=== PATIENT | female | born 1990 | race Caucasian/White ===

== ENCOUNTER 2022-08-01 20:31 | Outpatient (REF) | payer OTHER, SELFPAY ==
[2022-08-08 03:07] LABS: Age Gdln ACOG Testing Note (.); HPV Aptima Positive (Negative); HPV Genotype 16 Negative (Negative); HPV Genotype 18,45 Negative (Negative); IGP, Aptima HPV, rfx 16/18,45 Note (.)
== END 2022-08-01 20:32 ==
LOC: LAB 20:31
PROVIDERS: Visit Provider Obstetrics & Gynecology
DX: Z12.4 Encounter for screening for malignant neoplasm of cervix (principal)
CPT/HCPCS: 87624; 87625; 88175; G0145

== ENCOUNTER 2022-08-30 13:19 | Outpatient (OUT) | payer OTHER, SELFPAY ==
[2022-09-04 16:10] LABS: Gest. Age on Collection Date 15.1 weeks (.); Gestat. Age Based On As provided (.); Insulin Dep Diabetes No (.); Maternal Age At EDD 34.9 yr (.); OSBR Risk 1 IN 51 (.); Results Report (.)
== END 2022-08-30 13:20 | disposition home or self-care (01) ==
LOC: LAB 13:21
PROVIDERS: Visit Provider Obstetrics & Gynecology
DX: Z34.90 Encounter for supervision of normal pregnancy, unspecified, unspecified trimester (principal)
CPT/HCPCS: 36415; 82105; 82677; 84702; 86336

== ENCOUNTER 2022-09-06 09:11 | Outpatient (OUT) | payer OTHER, SELFPAY ==
--- NOTE | 2022-09-06 | US_ITS ---
[address] [address] Patient Name: SARAH HAN MRN: [id number] date: 1990 Sex: F Assigned Patient Location: US Current Patient Location: Accession/Order Number: [id number] Exam Date: 09/06/2022 09:15 Report Date: 09/06/2022 16:55 At the request of: ANNMARIE IGNACIO Procedure: US OB transvaginal EXAMINATION: US OB anatomy HISTORY: ANATOMY COMPARISON: No relevant comparison available. TECHNIQUE: Transabdominal sonographic examination was performed for obstetrical and evaluation. FINDINGS: Number: 1 Heart Rate: 139.0 bpm H.B. /min Amniotic Fluid Volume: Subjectively normal position: Breech presentation, maternal right Placental Location: Posterior, grade 1. Placental edge is 4.5 cm from the internal os Cervix Length: 4.4 cm , closed Normally visualized anatomy: Cerebellum, choroid plexus, cisterna magna, lateral cerebral ventricles, orbits, midline falx, hard palate, four-chamber heart, RVOT, LVOT, stomach, kidneys, bladder, umbilical cord insertion into the abdomen, three-vessel cord, cervical spine, thoracic spine, lumbar spine, sacral spine, right upper extremity, left upper extremity, right lower extremity, left lower extremity Suboptimally visualized anatomy: None BIOMETRY: BPD: 4.5 cm 19 weeks 3 days 13% HC: 16.5 cm 19 weeks 2 days, 6% AC: 14.5 cm 19 weeks 6 days, 29% FL: 3.1 cm 19 weeks 4 days, 18% EFW:304.5 grams; 11 ounces, 50% FL/AC: 21.2 FL/BPD: 69.1 HC/AC: 1.1 GESTATIONAL AGE: Age by EDC: 20 weeks 2 days JANINE by EDC: 01/22/2023 Age by current US: 19 weeks 4 days JANINE by current US: 01/27/2023 US/US OB transvaginal IMPRESSION: Normal anatomy scan *Reference: [facility] Practice Guideline for the performance of Obstetric Ultrasound Examinations, November 18, 2006. Electronically authenticated by: GILSON THORPE Date: 09/06/2022 16:55
--- NOTE | 2022-09-06 | US_ITS ---
[address] [address] Patient Name: SARAH HAN MRN: [id number] date: 1990 Sex: F Assigned Patient Location: US Current Patient Location: Accession/Order Number: [id number] Exam Date: 09/06/2022 09:15 Report Date: 09/06/2022 16:55 At the request of: ANNMARIE IGNACIO Procedure: US OB anatomy EXAMINATION: US OB anatomy HISTORY: ANATOMY COMPARISON: No relevant comparison available. TECHNIQUE: Transabdominal sonographic examination was performed for obstetrical and evaluation. FINDINGS: Number: 1 Heart Rate: 139.0 bpm H.B. /min Amniotic Fluid Volume: Subjectively normal position: Breech presentation, maternal right Placental Location: Posterior, grade 1. Placental edge is 4.5 cm from the internal os Cervix Length: 4.4 cm , closed Normally visualized anatomy: Cerebellum, choroid plexus, cisterna magna, lateral cerebral ventricles, orbits, midline falx, hard palate, four-chamber heart, RVOT, LVOT, stomach, kidneys, bladder, umbilical cord insertion into the abdomen, three-vessel cord, cervical spine, thoracic spine, lumbar spine, sacral spine, right upper extremity, left upper extremity, right lower extremity, left lower extremity Suboptimally visualized anatomy: None BIOMETRY: BPD: 4.5 cm 19 weeks 3 days 13% HC: 16.5 cm 19 weeks 2 days, 6% AC: 14.5 cm 19 weeks 6 days, 29% FL: 3.1 cm 19 weeks 4 days, 18% EFW:304.5 grams; 11 ounces, 50% FL/AC: 21.2 FL/BPD: 69.1 HC/AC: 1.1 GESTATIONAL AGE: Age by EDC: 20 weeks 2 days JANINE by EDC: 01/22/2023 Age by current US: 19 weeks 4 days JANINE by current US: 01/27/2023 US/US OB anatomy IMPRESSION: Normal anatomy scan *Reference: [facility] Practice Guideline for the performance of Obstetric Ultrasound Examinations, November 18, 2006. Electronically authenticated by: GILSON THORPE Date: 09/06/2022 16:55
== END 2022-09-06 09:12 | disposition home or self-care (01) ==
LOC: US 09:11
PROVIDERS: Visit Provider Obstetrics & Gynecology
DX: Z34.92 Encounter for supervision of normal pregnancy, unspecified, second trimester (principal)
CPT/HCPCS: 76805; 76817

== ENCOUNTER 2022-10-11 08:42 | Outpatient (OUT) | payer OTHER, SELFPAY ==
[2022-10-11 10:06] LABS: Basophils Absolute Auto 0.1 10^3/uL (0.0-0.1); Basophils Percent Auto 0.6 % (0.2-2.0); Eosinophils Percent Auto 0.5 % (0.9-7.0); Hematocrit 33.6 % (36.0-48.0); Hemoglobin 10.7 g/dL (12.0-16.0); Immature Granulocytes Abs Auto 0.11 10^3/uL (0.00-0.03); Immature Granulocytes Pct Auto 1.4 % (0.0-0.5); Lymphocytes Absolute Auto 1.3 10^3/uL (1.2-3.8); Lymphocytes Percent Auto 15.5 % (20.5-60.0); Mean Corpuscular HGB Conc 31.8 g/dL (29.9-35.2); Mean Corpuscular Volume 91.1 fL (81.0-99.0); Mean Platelet Volume 9.3 fL (9.5-13.5); Monocytes Absolute Auto 0.5 10^3/uL (0.3-0.8); Monocytes Percent Auto 6.7 % (1.7-12.0); Neutrophils Absolute Auto 6.1 10^3/uL (1.4-6.5); Neutrophils Percent Auto 75.3 % (43.0-75.0); Platelet Count 184 10^3/uL (150-450); Red Blood Count 3.69 10^6/uL (4.20-5.40); Red Cell Distribution Width 15.1 % (11.0-15.0); White Blood Count 8.1 10^3/uL (4.0-11.0)
[2022-10-11 11:56] LABS: Glucose 1 Hour 105 mg/dL
== END 2022-10-11 08:43 | disposition home or self-care (01) ==
PROVIDERS: Visit Provider Physician Assistant
DX: Z13.1 Encounter for screening for diabetes mellitus (principal)
CPT/HCPCS: 36415; 82950; 85025

== ENCOUNTER 2022-12-04 10:19 | Outpatient (OUT) | payer OTHER, SELFPAY ==
--- NOTE | 2022-12-04 | ECG_ITS ---
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
== END 2022-12-04 10:20 | disposition home or self-care (01) ==
LOC: CARD 10:20
PROVIDERS: Visit Provider Obstetrics & Gynecology
DX: R00.2 Palpitations (principal); R42 Dizziness and giddiness; R06.02 Shortness of breath
CPT/HCPCS: 93005

== ENCOUNTER 2022-12-27 20:22 | Outpatient (REF) | payer OTHER, SELFPAY | END 2022-12-27 20:23 | disposition home or self-care (01) | LOC: LAB 20:22 | PROVIDERS: Visit Provider Physician Assistant | DX: Z34.93 Encounter for supervision of normal pregnancy, unspecified, third trimester (principal) | CPT/HCPCS: 87081 ==

== ENCOUNTER 2023-01-07 16:40 | Outpatient (OUT) | payer OTHER, SELFPAY ==
[2023-01-07 16:59] VITALS: BP 109/71; PULSE 109
[2023-01-07 17:20] LABS: Bilirubin Urine NEGATIVE (NEGATIVE); Blood Urine NEGATIVE (NEGATIVE); Clarity Urine CLEAR (CLEAR); Color Urine LT. YELLOW (YELLOW); Glucose Urine UA NEGATIVE (NEGATIVE); Ketones Urine NEGATIVE (NEGATIVE); Leukocyte Esterase Urine NEGATIVE (NEGATIVE); Nitrite Urine NEGATIVE (NEGATIVE); Protein Urine NEGATIVE (NEG/TRACE); Specific Gravity Urine 1.015 (1.005-1.025); Urobilinogen Urine 0.2 EU/dL (0.2-1.0)
[2023-01-07 17:22] LABS: Urine Microscopic Indicated NO
[2023-01-07 17:27] LABS: Amnisure NEGATIVE (NEGATIVE)
--- NOTE | 2023-01-07 17:31 | US_ITS ---
The [address] [address] Patient Name: SARAH HAN MRN: [id number] date: 1990 Sex: F Assigned Patient Location: [facility] Current Patient Location: [facility] Accession/Order Number: [id number] Exam Date: 01/07/2023 17:32 Report Date: 01/07/2023 18:45 At the request of: ANNMARIE IGNACIO Procedure: US OB amniotic fluid vol EXAM: US OB amniotic fluid vol HISTORY: Possible ROM COMPARISON: 09/06/2022 TECHNIQUE: Transabdominal sonographic examination was performed for evaluation of the on the . FINDINGS: Limited study for evaluation of the amniotic fluid. Number: 1 Heart Rate: 147 bpm Amniotic Fluid : 17.7 cm, between the fifth and 90th percentile. The largest fluid pocket measures 5.9 cm. position: Cephalic, lies longitudinal US/US OB amniotic fluid vol IMPRESSION: Normal amount of amniotic fluid as described above. Heart Rate: 147 bpm Electronically authenticated by: PEMA MCGUIRE Date: 01/07/2023 18:45
[2023-01-07 17:36] VITALS: TEMP 36.2
--- NOTE | 2023-01-07 19:52 | W.PC.ACHO ---
Registration Status: REG OUT Primary Language: Preferred Language: Report given to Annie Herrera RN.
== END 2023-01-07 20:12 | disposition home or self-care (01) ==
LOC: FBCO 16:43 → FBC 16:46
PROVIDERS: PCP Family Medicine; Visit Provider Obstetrics & Gynecology
DX: Z03.71 Encounter for suspected problem with amniotic cavity and membrane ruled out (principal)
CPT/HCPCS: 59025; 76815; 81003; 84112

== ENCOUNTER 2023-01-16 23:49 | Inpatient (IN) | payer OTHER, SELFPAY ==
[2023-01-17] VITALS (48 sets, daily range): BP systolic 98–143; BP diastolic 56–104; PULSE 76–206; RESP 16; TEMP 36.3–37.1
[2023-01-17 01:12] LABS: Hematocrit 36.8 % (36.0-48.0); Hemoglobin 12.5 g/dL (12.0-16.0); Mean Corpuscular Hemoglobin 29.8 pg (26.7-34.0); Mean Corpuscular Volume 87.8 fL (81.0-99.0); Mean Platelet Volume 10.7 fL (9.5-13.5); Platelet Count 154 10^3/uL (150-450); Red Blood Count 4.19 10^6/uL (4.20-5.40); Red Cell Distribution Width 13.2 % (11.0-15.0); White Blood Count 11.6 10^3/uL (4.0-11.0)
[2023-01-17] MEDS: 0.9 % SODIUM CHLORIDE 1,000 ML 125 ML IV (01:15)
[2023-01-17] MEDS: 0.9 % SODIUM CHLORIDE 1,000 ML 1000 ML IV (02:17)
[2023-01-17] MEDS: FENTANYL CITRATE/PF 100 MCG/2 ML VIAL EPIDURAL ×2 (02:22→02:23)
[2023-01-17] MEDS: ROPIVACAINE HCL/PF 400 MG/200 ML PREMIX 6 MG EPIDURAL (02:32)
[2023-01-17] MEDS: OXYTOCIN/0.9 % SODIUM CHLORIDE 20 UNITS/1,000 ML PLAST..BAG 125 UNIT IV (06:05)
--- NOTE | 2023-01-17 06:12 | PM.OBPRCVD ---
Procedure Intrapartal events: None Induction method: none Delivery monitor: external FHT and external uterine Route of delivery: Laceration description: perineal - 1st degree Delivery repair: Vicryl Estimated blood loss (mL): 300 Anesthesia type: Epidural Disposition: floor Infant Delivery date: 01/17/23 Gender: female presentation: vertex Placental delivery description: Spontaneous cord description: 3 Vessels
[2023-01-17 07:26] LABS: Amphetamine Screen Urine NEGATIVE (NEGATIVE); Barbiturates Screen Urine NEGATIVE (NEGATIVE); Benzodiazepines Screen Urine NEGATIVE (NEGATIVE); Buprenorphine Screen Urine NEGATIVE (NEGATIVE); Cannabinoid Screen Urine NEGATIVE (NEGATIVE); Cocaine Screen Urine NEGATIVE (NEGATIVE); Methadone Screen Urine NEGATIVE (NEGATIVE); Methamphetamines Screen Urine NEGATIVE (NEGATIVE); Opiate Screen Urine NEGATIVE (NEGATIVE); Oxycodone Screen Urine NEGATIVE (NEGATIVE); Phencyclidine Screen Urine NEGATIVE (NEGATIVE); Tricyclic Antidepressant Urine NEGATIVE (NEGATIVE)
--- NOTE | 2023-01-17 08:00 | W.PC.ACHO ---
Registration Status: ADM IN Primary Language: Jamaican Preferred Language: Jamaican Report given to Ender Gallagher RN at 6540. Active Medications Generic Name Dose Route Start Last Admin Trade Name Freq PRN Reason Stop Dose Admin Acetaminophen 650 mg 01/17/23 06:13 Acetaminophen 325 Mg Tablet PO Q6H PRN Mild Pain Al Hydroxide/Mg Hydroxide 2,400 mg 01/17/23 06:13 Magnesium Hydroxide 2,400 Mg/10 Ml Oral.Susp PO Q6H PRN Dyspepsia Benzocaine/Menthol 1 applic 01/17/23 06:13 Benzocaine/Menthol 85 Gram [place] Bottle TOPICAL Q2H PRN Pain Carboprost Tromethamine 250 mcg 01/17/23 00:22 Carboprost Tromethamine 250 Mcg/Ml 1 Ml Vial IM 01/18/23 06:00 Q15M PRN Bleeding Celecoxib 20 mg 01/17/23 21:00 Citalopram Hydrobromide 20 Mg Tablet PO Q24H KISHORE Diphtheria/Pertussis/Tetanus Vacc 0.5 ml 01/19/23 09:00 Adacel Diph,Pertuss(Acell),Tet Vac/Pf 0.5 Ml Adult Syringe IM 01/19/23 09:01 .ONCE ONE Docusate Sodium 100 mg 01/18/23 09:00 Docusate Sodium 100 Mg Capsule PO BID KISHORE Sodium Chloride 1,000 mls @ 125 mls/hr 01/17/23 00:30 01/17/23 01:15 Sodium Chloride 0.9% 1,000 Ml IV 125 mls/hr .Q8H KISHORE Administration Oxytocin/Sodium Chloride 20 units in 1,000 mls @ 125 mls/hr 01/17/23 00:30 01/17/23 06:05 Pitocin 20 Unit/1,000 Ml-Ns IV 01/17/23 08:29 125 mls/hr Q8H KISHORE Administration Ibuprofen 800 mg 01/17/23 06:15 Ibuprofen 400 Mg Tablet PO Q8H KISHORE Measles/Mumps/Rubella Vaccine Live 0.5 ml 01/19/23 09:00 Measles,Mumps,Rubella Vacc/Pf 0.5 Ml Vial SQ 01/19/23 09:01 .ONCE ONE Methylergonovine Maleate 0.2 mg 01/17/23 00:22 Methylergonovine Maleate 0.2 Mg/Ml Ampule IM 01/18/23 06:00 ONCE PRN Uterine Contractility/Contract Methylergonovine Maleate 0.2 mg 01/17/23 00:22 Methylergonovine Maleate 0.2 Mg Tablet PO 01/18/23 06:00 Q4H PRN Uterine Contractility/Contract Misoprostol 600 mcg 01/17/23 00:22 Misoprostol 100 Mcg Tablet PO 01/18/23 06:00 ONCE PRN Uterine Bleeding Misoprostol 800 mcg 01/17/23 00:22 Misoprostol 100 Mcg Tablet SL 01/18/23 06:00 ONCE PRN Uterine Bleeding Misoprostol 1,000 mcg 01/17/23 00:22 Misoprostol 100 Mcg Tablet IL 01/18/23 06:00 ONCE PRN Uterine Bleeding Ondansetron HCl 4 mg 01/17/23 00:22 Ondansetron Pf 4 Mg/2 Ml Vial IV Q6H PRN Nausea And Vomiting Ondansetron HCl 4 mg 01/17/23 00:22 Ondansetron 4 Mg Rapdis Tablet SL Q6H PRN Nausea And Vomiting Oxytocin 10 unit 01/17/23 00:22 Oxytocin 10 Unit/Ml Vial IM 01/17/23 14:00 ONCE PRN Bleeding Senna 17.2 mg 01/17/23 20:00 Sennosides 8.6 Mg Tablet PO QHS PRN Constipation Simethicone 80 mg 01/17/23 06:13 Simethicone 80 Mg Tab.Chew PO QID PRN Abdominal Distention Temazepam 15 mg 01/17/23 06:13 Temazepam 15 Mg Capsule PO QHS PRN Sleep Witch Monica/Glycerin 1 pad 01/17/23 06:13 Glycerin/Witch Monica Pads TOPICAL Q2H PRN Pain Diet Category Date Time Status Regular Consistency Diet Diet 01/17/23 06:13 Active Consults Category Date Time Status Consult to Anesthesiology Routine Cons 01/17/23 Ordered IV Insertion/Site Date of IV Line Insertion [ 01/17/23 Short PIV (<1.75 in) 20g right Hand] IV Insertion Time [Short PIV ( 01:11 <1.75 in) 20g right Hand] Neurology Patient orientation (short person,place,time,situation list) Respiratory Oxygen Delivery Method Room Air Oxygen Delivery Method Room Air Catheter Date Urinary Catheter Removed 01/17/23 Date Urinary Catheter Removed 01/17/23 Date Urinary Catheter Removed 01/17/23 Date Urinary Catheter Removed 01/17/23 Date Urinary Catheter Removed 01/17/23 Date Urinary Catheter Removed 01/17/23
[2023-01-17] MEDS: IBUPROFEN 400 MG TABLET 800 MG PO ×2 (08:34→16:36)
[2023-01-17] MEDS: ONDANSETRON 4 MG RAPDIS TABLET SL (08:36)
--- NOTE | 2023-01-17 14:27 | PC.NURSE ---
1250 up to br, voids large amount, pericare reviewed, linens changed and returns to bed, attempts to nurse baby but baby spits up and uninterested
[2023-01-17] MEDS: BENZOCAINE/MENTHOL 85 GRAM SPRAY BOTTLE 1 APPLIC TOPICAL (16:36)
[2023-01-17] MEDS: GLYCERIN/WITCH HAZEL PADS 1 PAD TOPICAL (16:38)
--- NOTE | 2023-01-17 19:13 | PC.NURSE ---
uses breast pump after explanation on same, states feeling better with motrin and ice pack
[2023-01-17] MEDS: ACETAMINOPHEN 325 MG TABLET 650 MG PO (21:14)
[2023-01-18 01:10] VITALS: BP 111/73; PULSE 88; RESP 16
[2023-01-18] MEDS: CITALOPRAM HYDROBROMIDE 20 MG TABLET PO ×2 (01:15→20:15)
[2023-01-18] MEDS: IBUPROFEN 400 MG TABLET 800 MG PO ×3 (01:15→20:15)
[2023-01-18 06:04] LABS: Basophils Absolute Auto 0.1 10^3/uL (0.0-0.1); Basophils Percent Auto 0.7 % (0.2-2.0); Eosinophils Absolute Auto 0.1 10^3/uL (0.0-0.7); Eosinophils Percent Auto 0.5 % (0.9-7.0); Hematocrit 27.5 % (36.0-48.0); Hemoglobin 9.1 g/dL (12.0-16.0); Immature Granulocytes Abs Auto 0.15 10^3/uL (0.00-0.03); Immature Granulocytes Pct Auto 1.4 % (0.0-0.5); Lymphocytes Absolute Auto 2.1 10^3/uL (1.2-3.8); Lymphocytes Percent Auto 19.8 % (20.5-60.0); Mean Corpuscular HGB Conc 33.1 g/dL (29.9-35.2); Mean Corpuscular Volume 90.8 fL (81.0-99.0); Monocytes Absolute Auto 0.8 10^3/uL (0.3-0.8); Monocytes Percent Auto 7.7 % (1.7-12.0); Neutrophils Absolute Auto 7.3 10^3/uL (1.4-6.5); Neutrophils Percent Auto 69.9 % (43.0-75.0); Platelet Count 119 10^3/uL (150-450); Red Blood Count 3.03 10^6/uL (4.20-5.40); Red Cell Distribution Width 13.6 % (11.0-15.0); White Blood Count 10.5 10^3/uL (4.0-11.0)
[2023-01-18 08:59] VITALS: BP 108/75; PULSE 79
[2023-01-18 09:00] VITALS: RESP 14; TEMP 36.6
--- NOTE | 2023-01-18 09:31 | PM.OBPN ---
OB - PN: Subj Subjective Patient comments: no complaints and pain well controlled status: doing well Exam Constitutional Vital Signs, click to edit/add: Last Vital Signs Temp 98 F 01/18/23 09:00 Pulse 79 01/18/23 08:59 Resp 14 01/18/23 09:00 BP 108/75 01/18/23 08:59 O2 Del Method Room Air 01/18/23 09:00 Documenting provider has reviewed patient's vital signs: yes Common normals: no apparent distress Respiratory Common normals: normal respiratory effort and clear to auscultation bilaterally Cardio Common normals: regular rate and regular rhythm GI Common normals: Normal to inspection, nondistended, normoactive bowel sounds present Extremity Common normals: no clubbing, cyanosis or edema and no calf tenderness Results Labs Labs: Short CBC 01/18/23 Range/Units 05:48 WBC 10.5 (4.0-11.0) 10^3/uL Hgb 9.1 L (12.0-16.0) g/dL Hct 27.5 L (36.0-48.0) % Plt Count 119 L (150-450) 10^3/uL OB - PN: A/P Plan - Vaginal Delivery day: 1 Plan: routine care Time Spent with Patient Time: Total time spent is greater than 50% in coordination of care (as documented) at patient's floor/unit and/or counseling patient: Total time spent with greater than 50% in coordination of care (as documented) at patient's floor/unit and/or counseling patient: less than 15 minutes
--- NOTE | 2023-01-18 11:07 | W.PC.ACHO ---
Registration Status: ADM IN Primary Language: American Preferred Language: American Active Medications Generic Name Dose Route Start Last Admin Trade Name Freq PRN Reason Stop Dose Admin Acetaminophen 650 mg 01/17/23 06:13 01/17/23 21:14 Acetaminophen 325 Mg Tablet PO 650 mg Q6H PRN Administration Mild Pain Al Hydroxide/Mg Hydroxide 2,400 mg 01/17/23 06:13 Magnesium Hydroxide 2,400 Mg/10 Ml Oral.Susp PO Q6H PRN Dyspepsia Benzocaine/Menthol 1 applic 01/17/23 06:13 01/17/23 16:36 Benzocaine/Menthol 85 Gram [place] Bottle TOPICAL 1 applic Q2H PRN Administration Pain Celecoxib 20 mg 01/17/23 21:00 01/18/23 01:15 Citalopram Hydrobromide 20 Mg Tablet PO 20 mg Q24H KISHORE Administration Diphtheria/Pertussis/Tetanus Vacc 0.5 ml 01/19/23 09:00 Adacel Diph,Pertuss(Acell),Tet Vac/Pf 0.5 Ml Adult Syringe IM 01/19/23 09:01 .ONCE ONE Docusate Sodium 100 mg 01/18/23 09:00 Docusate Sodium 100 Mg Capsule PO BID KISHORE Sodium Chloride 1,000 mls @ 125 mls/hr 01/17/23 00:30 01/17/23 02:17 Sodium Chloride 0.9% 1,000 Ml IV 0 mls/hr .Q8H KISHORE Infusion Ibuprofen 800 mg 01/17/23 06:15 01/18/23 01:15 Ibuprofen 400 Mg Tablet PO 800 mg Q8H KISOHRE Administration Measles/Mumps/Rubella Vaccine Live 0.5 ml 01/19/23 09:00 Measles,Mumps,Rubella Vacc/Pf 0.5 Ml Vial SQ 01/19/23 09:01 .ONCE ONE Ondansetron HCl 4 mg 01/17/23 00:22 Ondansetron Pf 4 Mg/2 Ml Vial IV Q6H PRN Nausea And Vomiting Ondansetron HCl 4 mg 01/17/23 00:22 01/17/23 08:36 Ondansetron 4 Mg Rapdis Tablet SL 4 mg Q6H PRN Administration Nausea And Vomiting Senna 17.2 mg 01/17/23 20:00 Sennosides 8.6 Mg Tablet PO QHS PRN Constipation Simethicone 80 mg 01/17/23 06:13 Simethicone 80 Mg Tab.Chew PO QID PRN Abdominal Distention Temazepam 15 mg 01/17/23 06:13 Temazepam 15 Mg Capsule PO QHS PRN Sleep Witch Monica/Glycerin 1 pad 01/17/23 06:13 01/17/23 16:38 Glycerin/Witch Monica Pads TOPICAL 1 pad Q2H PRN Administration Pain Respiratory Oxygen Delivery Method Room Air Oxygen Delivery Method Room Air Cardiology Heart Sounds Strong,Regular Bowels Bowel Pattern No Bowel Movement Renal Bladder Pattern Continent Bladder Pattern Continent Bladder Pattern Continent
[2023-01-18] MEDS: DOCUSATE SODIUM 100 MG CAPSULE PO ×2 (11:10→20:15)
[2023-01-18 16:39] VITALS: RESP 16
[2023-01-18 17:33] VITALS: BP 120/64; PULSE 71
--- NOTE | 2023-01-18 19:06 | W.PC.ACHO ---
Registration Status: ADM IN Primary Language: Latvian Preferred Language: Latvian Report given to Juan Alberto Blue RN. Care relinguished. Active Medications Generic Name Dose Route Start Last Admin Trade Name Wilbert PRN Reason Stop Dose Admin Acetaminophen 650 mg 01/17/23 06:13 01/17/23 21:14 Acetaminophen 325 Mg Tablet PO 650 mg Q6H PRN Administration Mild Pain Al Hydroxide/Mg Hydroxide 2,400 mg 01/17/23 06:13 Magnesium Hydroxide 2,400 Mg/10 Ml Oral.Susp PO Q6H PRN Dyspepsia Benzocaine/Menthol 1 applic 01/17/23 06:13 01/17/23 16:36 Benzocaine/Menthol 85 Gram [place] Bottle TOPICAL 1 applic Q2H PRN Administration Pain Celecoxib 20 mg 01/17/23 21:00 01/18/23 01:15 Citalopram Hydrobromide 20 Mg Tablet PO 20 mg Q24H KISHORE Administration Diphtheria/Pertussis/Tetanus Vacc 0.5 ml 01/19/23 09:00 Adacel Diph,Pertuss(Acell),Tet Vac/Pf 0.5 Ml Adult Syringe IM 01/19/23 09:01 .ONCE ONE Docusate Sodium 100 mg 01/18/23 09:00 01/18/23 11:10 Docusate Sodium 100 Mg Capsule PO 100 mg BID KISHORE Administration Sodium Chloride 1,000 mls @ 125 mls/hr 01/17/23 00:30 01/17/23 02:17 Sodium Chloride 0.9% 1,000 Ml IV 0 mls/hr .Q8H KISHORE Infusion Ibuprofen 800 mg 01/17/23 06:15 01/18/23 11:09 Ibuprofen 400 Mg Tablet PO 800 mg Q8H KISHORE Administration Measles/Mumps/Rubella Vaccine Live 0.5 ml 01/19/23 09:00 Measles,Mumps,Rubella Vacc/Pf 0.5 Ml Vial SQ 01/19/23 09:01 .ONCE ONE Ondansetron HCl 4 mg 01/17/23 00:22 Ondansetron Pf 4 Mg/2 Ml Vial IV Q6H PRN Nausea And Vomiting Ondansetron HCl 4 mg 01/17/23 00:22 01/17/23 08:36 Ondansetron 4 Mg Rapdis Tablet SL 4 mg Q6H PRN Administration Nausea And Vomiting Senna 17.2 mg 01/17/23 20:00 Sennosides 8.6 Mg Tablet PO QHS PRN Constipation Simethicone 80 mg 01/17/23 06:13 Simethicone 80 Mg Tab.Chew PO QID PRN Abdominal Distention Temazepam 15 mg 01/17/23 06:13 Temazepam 15 Mg Capsule PO QHS PRN Sleep Witch Monica/Glycerin 1 pad 01/17/23 06:13 01/17/23 16:38 Glycerin/Witch Monica Pads TOPICAL 1 pad Q2H PRN Administration Pain Respiratory Oxygen Delivery Method Room Air Oxygen Delivery Method Room Air Cardiology Heart Sounds Strong,Regular Bowels Bowel Pattern No Bowel Movement Renal Bladder Pattern Continent Bladder Pattern Continent Bladder Pattern Continent
[2023-01-19 00:55] VITALS: BP 121/73; PULSE 75
[2023-01-19 00:56] VITALS: TEMP 36.7
[2023-01-19 01:05] VITALS: RESP 16
[2023-01-19] MEDS: IBUPROFEN 400 MG TABLET 800 MG PO (04:41)
[2023-01-19 06:09] LABS: HCV Ab Non Reactive (Non Reactive)
--- NOTE | 2023-01-19 07:42 | PC.NURSE ---
Report given to Ender Herrera RN
[2023-01-19 09:17] VITALS: BP 113/81; PULSE 80
[2023-01-19] MEDS: DOCUSATE SODIUM 100 MG CAPSULE PO (09:21)
[2023-01-19 09:25] VITALS: PULSE 80; RESP 16; TEMP 36.7
--- NOTE | 2023-01-19 10:27 | PM.OBDS ---
DS: Providers Provider Date of admission: 01/17/23 00:25 Primary care physician: JACK MALONEY Attending physician on admission: Mauricio Alvarado Consults: 01/17/23 Consult to Anesthesiology Routine Consulting Provider: Chau Silva Reason for consultation: Epidural Has provider been notified: No Attending physician on discharge: Rosetta Hagan Anticipated date of discharge: 01/19/23 DS: Diagnosis Discharge Diagnosis (1) Normal vaginal delivery: Assessment and plan: chart reviewed. discharge home Plan home going scripts provided for ibuprofen. to continue her SSRI when home. home going instructions given with stated understanding. post exam in six weeks OB - DS: Summary Hospital Course Hospital Course: uncomplicated Time spent discussing smoking cessation with patient: 3 to 10 minutes Peripartum Data - Vaginal Delivery Laceration description: periurethral - 1st degree Complications complications: none Delivery method: spontaneous vaginal delivery Gender: female Discharge plan: home Status at Discharge Cognitive/behavioral status at discharge: normal Functional status at discharge: independent ambulation Overall status at discharge: patient is back to baseline Time Spent with Patient Time attestation: Total time spent providing and/or coordinating discharge services: Time spent: less than 30 minutes Specific discharge activities: no sex six weeks, limit time in car to doctor appointments for three weeks, walking only exercise for six weeks, may shower and use bath tub, sports bra 10/09 if decides not to breast feed, general covid and RSV precautions Exam Constitutional Vital Signs, click to edit/add: Last Vital Signs Temp 98.0 F 01/19/23 09:25 Pulse 80 01/19/23 09:25 Resp 16 01/19/23 09:25 BP 113/81 01/19/23 09:17 O2 Del Method Room Air 01/19/23 09:25 Documenting provider has reviewed patient's vital signs: yes Common normals: no apparent distress and oriented x3 HENMT Common normals: normocephalic and head/scalp atraumatic Eye Pupil: PERRL and accommodation reflex normal Neck & C-Spine Common normals: full ROM, no lymphadenopathy and supple Chest Common normals: inspection of chest normal Respiratory Common normals: normal respiratory effort Cardio Common normals: regular rate and regular rhythm GI Common normals: Normal to inspection, nondistended, normoactive bowel sounds present Common normals: no CVA tenderness Back & Pelvis Common normals: no CVA tenderness Extremity Common normals: full ROM and no calf tenderness Neuro Common normals: CN's II-XII intact bilaterally, moves all extremities, no focal motor deficits and no sensory deficits noted Psych Common normals: mental status grossly normal, thought process normal, cooperative and affect normal DS: Data Data Completed and Pending Labs on day of discharge: Labs from last 24 hours 01/18/23 09:24 Hepatitis C Antibody Non reactive Hepatitis C Interp Comment Discharge Plan Discharge Disposition: Home, Self-Care Condition: Good Assessment: clinical exam normal. requesting discharge. voicing no complaints. Plan of Treatment: discharge home Discharge Medications: Continued citalopram 20 mg tablet 20 mg PO DAILY Patient Instructions: Vaginal Delivery (DC) Activity Restrictions/Additional Instructions: stated above Forms: Portal Instructions Follow Up Appointments: six weeks post exam Discharge location: home
== END 2023-01-19 13:50 | disposition home or self-care (01) | DRG 560 ==
PROVIDERS: Admitting Provider Obstetrics & Gynecology; PCP Family Medicine; Visit Provider Obstetrics & Gynecology
DX: O99.344 Other mental disorders complicating childbirth (principal); F41.9 Anxiety disorder, unspecified; O70.0 First degree perineal laceration during delivery; Z3A.39 39 weeks gestation of pregnancy; Z37.0 Single live birth; Z86.19 Personal history of other infectious and parasitic diseases
CPT/HCPCS: 36415; 59025; 59050; 59410; 80307; 85025; 85027; 86803; 86850; 86900; 86901; 96374

== ENCOUNTER 2023-01-24 08:20 | Outpatient (OUT) | payer OTHER, SELFPAY ==
--- NOTE | 2023-01-24 11:53 | PC.NURSE ---
Marissa and 7 day old Yvonne arrive for follow up. Baby is pink and dressed appropriately for weather. Mom states, I feel like the wheels have fallen off becomes tearful complains of bleeding nipples, hard latching and that pumping is terrible Encouraged to deep breathe and LC would work through each concern until pt felt concerns are addressed. Assessment for Marissa WNL, and denies concerns or complaints except for . Currently trying to bottle feed pumped milk during visit as baby is rooting. Encouraged to wait for bottle until breast feeding evaluated. Marissa is anxious, worried, and exhausted. Sig other present today and states has tried to help her but she remains sleep deprived and worried. Pt admits to having anxiety prior to baby's arrival. Yvonne assessed and all WNL. Color pink no transcutaneous bili needed. Heavy wet diaper remover and parents report 7 wets daily and 5 yellow seedy stools yesterday. Oral assessment of noted slight upper lip frenulum but with very slight restriction. Good movement of the tongue into lateral and elevated position. to breast as Marissa states I really want to just breastfeed but am so sore LC discusses and demo's better positioning and deep asymmetrical latch. LC assists mom in getting best position and deeper latch, bringing baby to breast instead of breast to baby. Mom states still struggles to handle baby as I am afraid to hurt her Reassured and encouraged to be proactive in protecting nipples and assisting infant to latch better therefore, infant feeding better. Voices understanding and is able to confidently latch baby without assistance. Baby displays good suck and audible swallows for 15/12 for the feeding. Mom voices relief in pain during feed. Reviewed pumping strategies so mom may get 1 longer block of sleep. Dad will assume 1 bottle feed late evening after mom has breast fed and then pumped to obtain milk for next feed. Parents plan to return 01/28/2023 at 2:30 for continued support. Leaves ambulatory with more confidence in skills. Also given Soothies, shells, lanolin and tea bags with instructions for breast and nipple care.
[2023-01-24 12:40] VITALS: BP 131/82; PULSE 66; RESP 16; TEMP 36.6; O2SAT 98
--- OUTSIDE RECORDS SUMMARY | 2023-02-06 02:39 | XMS_ITS | CCD ---
Author Name Unknown Address [address] [place] [address] Organization [facility] Care Team Providers Care Medical Recruiter Name Role Phone Thanh Fregoso MD Primary Care Provider MD Thanh Fregoso Primary Care Provider [phone] DO Aman Colon Emergency Provider [phone] DO Aman Colon Attending Provider DO aJnn Addison Emergency Provider DO Laci Palacios Emergency Provider Dl Vee Unavailable Aman Colon Admitting Unavailable Aman Colon Attending Unavailable Thanh Freogso Primary Care Unavailable Thanh Fregoso Primary Care Unavailable Jann Addison Admitting Unavailable Jann Addison Attending Unavailable Aman Colon Admitting Unavailable Aman Colon Attending Unavailable Thanh Fregoso Primary Care Unavailable Laci Palacios Admitting Unavailable Laci Palacios Attending Unavailable Thanh Fregoso Primary Care Unavailable DAVON LUNA Attending Unavailable DAVON LUNA Attending Unavailable DAVON LUNA Attending Unavailable Medications Current Medications Medication Drug Class(es) Dates Sig (Normalized) Sig (Original) cephalexin 250 mg oral tablet (5 sources) Cephalosporin Antibacterial Start: 06-30-2022 take 250 mg by mouth four times daily Cephalexin Active 250 MG PO Four times daily 28 June 30, 2022 12:00am Start: 05-24-2022 take 500 mg by mouth twice daily Cephalexin Active 500 MG PO Twice daily 10 5 May 24, 2022 12:00am escitalopram 5 mg oral tablet (5 sources) Serotonin Reuptake Inhibitor Start: 05-24-2022 Escitalopram Oxalate Active MG TABLET May 24, 2022 12:00am take 1 tablet by briseyda th every twenty-four hours Lexapro 5 MG 1 tablet Orally Once a day half of 5mg Active fluticasone propionate 0.05 mg/actuat metered dose nasal spray (1 source) Corticosteroid Start: 07-01-2022 take 1 spray(s) nasal route once daily Flonase Allergy Relief 50 MCG/ACT 1 spray in each nostril Nasally Once a day for 30 day(s) June, Active hydrOXYzine hydrochloride 50 mg oral tablet (4 sources) Antihistamine Start: 05-24-2022 Hydroxyzine Hc l Active MG TABLET May 24, 2022 12:00am loratadine 10 mg oral tablet (1 source) Start: 07-01-2022 take 1 tablet by mouth once daily Claritin 10 MG 1 tablet Orally Once a day for 30 day(s) June, Active Melatonin (1 source) MELATONIN PO Scott e by mouth. Per patient - only as needed 0 Active Problems Problem Classification Problem Date Documented Da te Episodic/Chronic Abdominal pain (1 source) Unspecified abdominal pain; Translations: [Unspecified abdominal pain] Onset: 05-24-2022 Episodic Nausea and vomiting (1 source) Nausea; Translations: [Nausea] 06-30-2022 Episodic Nonmalignant breast conditions (3 sources) Lump in right breast; Translations: [Unspecified lump in the right breast, unspecified quadrant] Onset: 03-27-2022 Episodic Other complications of (4 sources) Complication of , childbirth and/or the puerperium; Translations: [Other specified related conditions, unspecified trimester] 05-24-2022 Episodic Other complications of (1 source) Bacteriuria; Translations: [Bacteriuria during ] 06-30-2022 Episodic Other complications of (2 sources) Other specified related conditions, unspecified trimester; Translations: [Other specified related conditions, unspecified trimester] Onset: 05-24-2022 Episodic Other female genital disorders (2 sources) Vaginal bleeding; Translations: [Abnormal uterine and vaginal bleeding, unspecified] 06-13-2022 Chronic Other skin disorders (3 sources) Scar of skin; Translations: [Scar conditions and fibrosis of skin] Onset: 03-27-2022 03-27-2022 Episodic Other upper respiratory infections (2 sources) Acute pharyngitis, unspecified; Translations: [Acute sinusitis, unspecified] Episodic Residual codes; unclassified (3 sources) History of bilateral breast implants; Translations: [Breast implant status] Onset: 03-27-2022 Chronic Urinary tract infections (4 sources) Urinary tract infectious disease; Translations: [Urinary tract infection, site not specified] 05-24-2022 Episodic Results Test Name Value Interpretation Reference Range Facil ity Quick Strepon 07-01-2022 S. pyogenes Org specific cx Ql (Throat) Negative [facility] [employer] Other Quick Strep [facility] [employer] Other Alanine aminotransferase [En zymatic activity/volume] in Serum or PlasmaOrdered By: Laci Palacios on 06-30-2022 ALT [Catalytic activity/Vol] 11 U/L 7-52 [facility] Albumin [Mass/volume] in Ser um or Plasma by Bromocresol green (BCG) dye binding methoOrdered By: Laci Palacios on 06-30-2022 Albumin BCG dye [Mass/Vol] 3.5 g/dL 3.5-5.7 [facility] Alkaline phosphatase [Enzyma tic activity/volume] in Serum or PlasmaOrdered By: Laci Palacios on 06-30-2022 ALP [Catalytic activity/Vol] 33 U/L 34-104 [facility] Aspartate aminotransferase [ Enzymatic activity/volume] in Serum or PlasmaOrdered By: Laci Palacios on 06-30-2022 AST [Catalytic activity/Vol] 14 U/L 13-39 [facility] Automated erythrocytes count in urine sediment (number/area)Ordered By: Laci Palacios on 06-30-2022 RBC Auto (Urine sed) [#/Area] 3-4 [HPF] 0-4 [facility] Automated leukocytes count i n urine sediment (number/area)Ordered By: Laci Palacios on 06-30-2022 WBC Auto (Urine sed) [#/Area] 1-2 [HPF] 0-4 [facility] Basophils Auto (Bld) [#/Vol] Ordered By: Laci Palacios on 06-30-2022 Basophils (Bld) [#/Vol] 0.1 10*3/uL 0.0-0.2 [facility] Basophils/100 WBC Auto (Bld) Ordered By: Laci Palacios on 06-30-2022 Basophils/100 WBC (Bld) 0.8 % . [facility] Bilirubin Test strip Ql (U)O rdered By: Laci Palacios on 06-30-2022 Bilirubin Ql (U) Negative Negative [facility] Bilirubin.total [Mass/volume ] in Serum or PlasmaOrdered By: Laci Palacios on 06-30-2022 Bilirubin [Mass/Vol] 0.3 mg/dL 0.3-1.0 [facility] COVID CepheidOrdered By: Stefanie Palacios on 06-30-2022 SARS-CoV-2 (COVID-19) Ab IA Ql Negative Negat bryan [facility] Comment on above: This is a duplicate Cepheid Xpert Xpress CoV-2/Flu/RSV Plus RNA by RT-PCR result to be used for statistical tracking purpose only. SARS-CoV-2 (COVID-19) RNA NA A+probe Ql (Unsp spec) [facility] COVID-19 / Flu A/B / RSV PCR on 06-30-2022 SARS-CoV-2 (COVID-19) RNA AZEB+probe Ql (Unsp spec) COVID-19 Cepheid Result Negative for SARS-CoV-2 RNA by RT-PCR Flu A Cepheid Result Negative for Flu A RNA by RT-PCR Flu B Cepheid Result Negative for Flu B RNA by RT-PCR RSV Cepheid Result Negative for RSV RNA by RT-PCR COVID19 Blank Space Reference: Negative COVID19 Blank Space Cepheid Disclaimer The Cepheid Xpert Xpress CoV-2/Flu/RSV Plus has Cepheid Disclaimer not been FDA cleared or approved; this test has Cepheid Disclaimer been authorized by FDA under an EUA for use by Cepheid Disclaimer authorized laboratories; this test has been Cepheid Disclaimer authorized only for the simultaneous qualitative Cepheid Disclaimer detection and differentiation of nucleic acids from Cepheid Disclaimer SARS-CoV-2, influenza A, influenza B, and Cepheid Disclaimer respiratory syncytial virus (RSV), and not for any Cepheid Disclaimer other viruses or pathogens; and this test is only Cepheid Disclaimer authorized for the duration of the declaration that Cepheid Disclaimer circumstances exist justifying the authorization of Cepheid Disclaimer emergency use of in vitro diagnostic tests for Cepheid Disclaimer detection and/or diagnosis of COVID-19 under Cepheid Disclaimer Section 564(b)(1) of the Act, 21 U.S.C. 360bbb- Cepheid Disclaimer 3(b)(1), unless the authorization is terminated or Cepheid Disclaimer revoked sooner. PERFORMED BY: [place] [id number] PATHOLOGIST [employer] JESSICA MANE M.D. Normal [facility] Comment on above: Performed By: #### A DDONUAPLUS, U #### [address] Calcium [Mass/volume] in Ser um or PlasmaOrdered By: Laci Palacios on 06-30-2022 Calcium [Mass/Vol] 8.0 mg/dL 8.6-10.3 [facility] Carbon dioxide, total [Moles /volume] in Serum or PlasmaOrdered By: Laci Palacios on 06-30-2022 CO2 [Moles/Vol] 22.1 mmol/L 21.0-31.0 [facility] Cepheid COVID PCR Negativeon 06-30-2022 SARS-CoV-2 (COVID-19) RNA AZEB+probe Ql (Unsp spec) Negative Normal Negative [facility] Comment on above: Result Comment: This is a duplicate Cepheid Xpert Xpress CoV- 2/Flu/RSV Plus RNA by RT-PCR result to be used for statistical tracking purpose only. PERFORMED BY: [place] [address] PATHOLOGIST [employer] JESSICA MANE M.D. Performed By: #### A REYMUNDO, CUU #### [address] Chloride [Moles/volume] in S erick or PlasmaOrdered By: Laci Palacios on 06-30-2022 Chloride [Moles/Vol] 103 mmol/L 98-107 [facility] Color Auto (U)Ordered By: Broderick Palacios on 06-30-2022 Color (U) Yellow Yellow [facility] Complete Blood Count Auto Di ffon 06-30-2022 Basophils (Bld) [#/Vol] 0.1 10*3/uL Normal 0.0-0.2 [facility] Comment on above: Result Comment: PERF ORMED BY: [place] [address] PATHOLOGIST [employer] JESSICA MANE M.D. Performed By: #### A REYMUNDO, CUU #### [address] Basophils/100 WBC (Bld) 0.8 % Normal . [facility] Comment on above: Performed By: #### A REYMUNDO, CUU #### [address] Eosinophils (Bld) [#/Vol] 0.0 10*3/uL Normal 0.0-0.45 [facility] Comment on above: Performed By: #### A REYMUNDO, CUU #### [address] Eosinophils/100 WBC (Bld) 0.1 % Normal . [facility] Comment on above: Performed By: #### A ERYMUNDO, CUU #### [address] Erythrocyte distribution wid th (RBC) [Ratio] 13.4 % Normal 11.9-15.3 [facility] Comment on above: Performed By: #### A KELSEYPLUS, CUU #### [address] Hematocrit (Bld) [Volume fraction] 35.4 % Normal 34.0-46.4 [facility] Comment on above: Performed By: #### A DDONUAPLUS, CUU #### [address] Hemoglobin (Bld) [Mass/Vol] 11.7 g/dL Low 11.8-15. 4 [facility] Comment on above: Performed By: #### A DDONUAPLUS, CUU #### [address] Lymphocytes (Bld) [#/Vol] 0.9 10*3/uL Low 1.00-4.8 [facility] Comment on above: Performed By: #### A DDONUAPLUS, CUU #### [address] Lymphocytes/100 WBC (Bld) 12.6 % Normal . [facility] Comment on above: Performed By: #### A DDONUAPLUS, CUU #### [address] MCH (RBC) [Entitic mass] 28.2 pg Normal 24.7-34.3 [facility] Comment on above: Performed By: #### A DDONUAPLUS, CUU #### [address] MCV (RBC) [Entitic vol] 85.4 fL Normal 80-100 [facility] Comment on above: Performed By: #### A DDONUAPLUS, CUU #### [address] Mean Corpuscular HGB Conc 33.0 g/dL Normal 32.0-35.0 [facility] Comment on above: Performed By: #### A DDONUAPLUS, CUU #### [address] Monocytes (Bld) [#/Vol] 1.0 10*3/uL High 0.0-0.8 [facility] Comment on above: Performed By: #### A DDONUAPLUS, CUU #### [facility] [address] [place] [address] [place] Monocytes/100 WBC (Bld) 22.71 % High 0.00-20.00 [facility] Comment on above: Result Comment: For adults in ED, MDW > 20.0 may be associated with a higher risk of sepsis during the first 12 hrs of hospital admission Performed By: #### A DDONUAPLUS, CUU #### [facility] [address] [place] [address] [place] Monocytes/100 WBC (Bld) 14.3 % Normal . [facility] Comment on above: Performed By: #### A DDONUAPLUS, CUU #### [facility] [address] Neutrophils (Bld) [#/Vol] 4.9 10*3/uL Normal 1.8-7.7 [facility] Comment on above: Performed By: #### A DDONUAPLUS, CUU #### [facility] [address] [place] [address] [place] Neutrophils/100 WBC (Bld) 72.2 % Normal . [facility] Comment on above: Performed By: #### A DDONUAPLUS, CUU #### [facility] [address] [place] [address] [place] NRBC% 0.0 /100{WBC} Normal 0-0.5 [facility] Comment on above: Performed By: #### A DDONUAPLUS, CUU #### [facility] [address] [place] [id number] [place] Platelet mean volume (Bld) [Entitic vol] 7.5 fL Normal 6.3-10.7 [facility] Comment on above: Performed By: #### A DDONUAPLUS, CUU #### [facility] [address] [place] [address] [place] Platelets (Bld) [#/Vol] 177 10*3/uL Normal 150-450 [facility] Comment on above: Performed By: #### A REYMUNDO, CUU #### [facility] [address] [place] [address] RBC (Bld) [#/Vol] 4.14 10*6/uL Normal 3.60-5.00 [facility] Comment on above: Performed By: #### A REYMUNDO CUU #### [address] WBC (Bld) [#/Vol] 6.8 10*3/uL Normal 3.8-11.6 [facility] Comment on above: Performed By: #### A REYMUNDO CUU #### [address] Comprehensive Metabolic Pane edel 06-30-2022 Albumin [Mass/Vol] 3.5 g/dL Normal 3.5-5.7 [facility] Comment on above: Performed By: #### A REYMUNDO, CUU #### [address] Albumin/Globulin [Mass ratio] 1.3 {ratio} Normal [facility] Comment on above: Performed By: #### A REYMUNDO, CUU #### [address] ALP [Catalytic activity/Vol] 33 U/L Low 34-104 [facility] Comment on above: Performed By: #### A REYMUNDO, CUU #### [address] ALT [Catalytic activity/Vol] 11 U/L Normal 7-52 [facility] Comment on above: Performed By: #### A REYMUNDO, CUU #### [address] Anion gap [Moles/Vol] 11.0 mmol/L Normal 6.0-15.0 [facility] Comment on above: Performed By: #### A REYMUNDO, CUU #### [facility] [address] AST [Catalytic activity/Vol] 14 U/L Normal 13-39 [facility] Comment on above: Performed By: #### A REYMUNDO, CUU #### [facility] [address] [place] [address] [place] Bilirubin [Mass/Vol] 0.3 mg/dL Normal 0.3-1.0 [facility] Comment on above: Performed By: #### A REYMUNDO, CUU #### [facility] [address] Calcium [Mass/Vol] 8.0 mg/dL Low 8.6-10.3 [facility] Comment on above: Performed By: #### A REYMUNDO, CUU #### [facility] [address] Chloride [Moles/Vol] 103 mmol/L Normal 98-107 [facility] Comment on above: Performed By: #### A REYMUNDO, CUU #### [facility] [address] [place] [address] [place] CO2 [Moles/Vol] 22.1 mmol/L Normal 21.0-31.0 [facility] Comment on above: Performed By: #### A REYMUNDO, CUU #### [facility] [address] [place] [id number] [place] Creatinine [Mass/Vol] 0.53 mg/dL Low 0.60-1.20 [facility] Comment on above: Performed By: #### A REYMUNDO, CUU #### [facility] [address] [place] [address] [place] Creatinine Clr Calc Pharmacy 134.58 [facility] Comment on above: Performed By: #### A REYMUNDO, CUU #### [facility] [address] [place] [address] [place] GFR/1.73 sq M.predicted MDRD (S/P/Bld) [Vol rate/Area] mL/min/{1.73_m2} [facility] Comment on above: Performed By: #### A DDONUAPLUS, CUU #### [facility] [address] Globulin (S) [Mass/Vol] 2.8 g/dL Normal [facility] Comment on above: Performed By: #### A DDONUAPLUS, CUU #### [facility] [address] Glucose [Mass/Vol] 80 mg/dL Normal 70-100 [facility] Comment on above: Result Comment: [facility] Glucose Reference Range is dependent on time and content of last meal. Glucose of more than 200 mg/dL in a nonstressed, ambulatory subject supports the diagnosis of Diabetes Mellitus. ADA recommended reference range Performed By: #### A DDONUAPLUS, CUU #### [facility] [address] Potassium [Moles/Vol] 4.1 mmol/L Normal 3.5-5.1 [facility] Comment on above: Performed By: #### A DDONUAPLUS, CUU #### [facility] [address] [place] [address] [place] Protein [Mass/Vol] 6.3 g/dL Low 6.4-8.9 [facility] Comment on above: Performed By: #### A DDONUAPLUS, CUU #### [facility] [address] [place] [address] [place] Sodium [Moles/Vol] 132 mmol/L Low 136-145 [facility] Comment on above: Performed By: #### A DDONUAPLUS, CUU #### [facility] [address] [place] [address] [place] Urea nitrogen [Mass/Vol] 5 mg/dL Low 7-25 [facility] Comment on above: Performed By: #### A DDONUAPLUS, CUU #### [facility] [address] [place] [address] [place] Creatinine [Mass/volume] in Serum or PlasmaOrdered By: Laci Palacios on 06-30-2022 Creatinine [Mass/Vol] 0.53 mg/dL 0.60-1.20 [facility] Dipstick and Microscopicon 0 06-30-2022 Appearance (U) Clear Normal Clear [facility] Comment on above: Order Comment: Name Collection Type:: Clean-Voided Midstream Performed By: #### A DDONUAPLUS, CUU #### [facility] [address] [place] [address] [place] Bacteria,Urine 2+ High None Seen [facility] Comment on above: Order Comment: Name Collection Type:: Clean-Voided Midstream Performed By: #### A DDONUAPLUS, CUU #### [facility] [address] [place] [address] [place] Bilirubin,Urine Negative Normal Negative [facility] Comment on above: Order Comment: Name Collection Type:: Clean-Voided Midstream Performed By: #### A DDONUAPLUS, CUU #### [place] [address] [place] Color (U) Yellow Normal Yellow [facility] Comment on above: Order Comment: Name Collection Type:: Clean-Voided Midstream Performed By: #### A DDONUAPLUS, CUU #### [facility] [address] [place] [address] [place] Glucose Ql (U) Normal Normal Normal [facility] Comment on above: Order Comment: Name Collection Type:: Clean-Voided Midstream Performed By: #### A DDONUAPLUS, CUU #### [facility] [address] [place] [address] [place] Hyaline Casts,Urine 0-8 Normal 0-8 [facility] Comment on above: Order Comment: Name Collection Type:: Clean-Voided Midstream Result Comment: PERF ORMED BY: [place] [address] PATHOLOGIST [employer] JESSICA MANE M.D. Performed By: #### A DDONUAPLUS, CUU #### [facility] [address] [place] [address] [place] Ketones Ql (U) 1+ High Negative [facility] Comment on above: Order Comment: Name Collection Type:: Clean-Voided Midstream Performed By: #### A DDONUAPLUS, CUU #### [address] Leukocyte esterase Test stri p Ql (U) 1+ High Negative [facility] Comment on above: Order Comment: Name Collection Type:: Clean-Voided Midstream Performed By: #### A DDONUAPLUS, CUU #### [address] Nitrite,Urine Negative Normal Negative [facility] Comment on above: Order Comment: Name Collection Type:: Clean-Voided Midstream Performed By: #### A DDONUAPLUS, CUU #### [address] Occult Blood,Urine Trace High Negative [facility] Comment on above: Order Comment: Name Collection Type:: Clean-Voided Midstream Result Comment: PERF ORMED BY: [place] [address] PATHOLOGIST [employer] JESSICA MANE M.D. Performed By: #### A DDONUAPLUS, CUU #### [address] pH (U) 7.5 [pH] Normal 5.0-9.0 [facility] Comment on above: Order Comment: Name Collection Type:: Clean-Voided Midstream Performed By: #### A DDONUAPLUS, CUU #### [address] Protein,Urine Negative Normal Negative [facility] Comment on above: Order Comment: Name Collection Type:: Clean-Voided Midstream Performed By: #### A DDONUAPLUS, CUU #### [address] RBC,Urine 3-4 Normal 0-4 [facility] Comment on above: Order Comment: Name Collection Type:: Clean-Voided Midstream Performed By: #### A DDONUAPLUS, CUU #### [facility] [address] Specificy [place],Urine 1.005 Normal 1.001-1.030 [facility] Comment on above: Order Comment: Name Collection Type:: Clean-Voided Midstream Performed By: #### A DDONUAPLUS, CUU #### [facility] [address] Squamous Epithelial Cell,Urine 5-9 High 0-2 [facility] Comment on above: Order Comment: Name Collection Type:: Clean-Voided Midstream Performed By: #### A DDONUAPLUS, CUU #### [facility] [address] [place] [address] Urobilinogen,Urine Normal Normal Normal [facility] Comment on above: Order Comment: Name Collection Type:: Clean-Voided Midstream Performed By: #### A DDONUAPLUS, CUU #### [facility] [address] [place] [address] WBC,Urine 1-2 Normal 0-4 [facility] Comment on above: Order Comment: Name Collection Type:: Clean-Voided Midstream Performed By: #### A DDONUAPLUS, CUU #### [facility] [address] [place] [address] Eosinophils Auto (Bld) [#/Vo l]Ordered By: Laci Palacios on 06-30-2022 Eosinophils (Bld) [#/Vol] 0.0 10*3/uL 0.0-0.45 [facility] Eosinophils/100 WBC Auto (Bl d)Ordered By: Laci Palacios on 06-30-2022 Eosinophils/100 WBC (Bld) 0.1 % . [facility] Erythrocyte distribution wid th Auto (RBC) [Ratio]Ordered By: Laci Palacios on 06-30-2022 Erythrocyte distribution wid th (RBC) [Ratio] 13.4 % 11.9-15.3 [facility] Globulin Calc (S) [Mass/Vol] Ordered By: Laci Palacios on 06-30-2022 Globulin (S) [Mass/Vol] 2.8 g/dL [facility] Glucose [Mass/volume] in Ser um or PlasmaOrdered By: Laci Palacios on 06-30-2022 Glucose [Mass/Vol] 80 mg/dL 70-100 [facility] Comment on above: ADA recommended refe rence rangeRandom Glucose Reference Range is dependent on time and content of last meal. Glucose of more than 200 mg/dL in a nonstressed, ambulatory subject supports the diagnosis of Diabetes Mellitus. Hematocrit Auto (Bld) [Volum e fraction]Ordered By: Laci Palacios on 06-30-2022 Hematocrit (Bld) [Volume fraction] 35.4 % 3 4.0-46.4 [facility] Hemoglobin [Mass/volume] in BloodOrdered By: Laci Palacios on 06-30-2022 Hemoglobin (Bld) [Mass/Vol] 11.7 g/dL 11.8-15. 4 [facility] Ketones Auto test strip (U) [Mass/Vol]Ordered By: Laci Palacios on 06-30-2022 Ketones (U) [Mass/Vol] 1+ Negative [facility] - UrinalysisOrder ed By: Laci Palacios on 06-30-2022 Hyaline casts LM Ql (Urine sed) 0-8 [LPF] 0-8 [facility] Leukocytes [#/volume] correc francois for nucleated erythrocytes in Blood by Automated counOrdered By: Laci Palacios on 06-30-2022 WBC corrected for nucl RBC A uto (Bld) [#/Vol] 6.8 10*3/uL 3.8-11.6 [facility] Lipaseon 06-30-2022 Lipase [Catalytic activity/Vol] 21.0 U/L Normal 11.0 -82.0 [facility] Comment on above: Result Comment: PERF ORMED BY: [place] [address] PATHOLOGIST [employer] JESSICA MANE M.D. Performed By: #### A PAOLO DWYER #### [address] Lipase [Enzymatic activity/v olume] in Serum or PlasmaOrdered By: Laci Palacios on 06-30-2022 Lipase [Catalytic activity/Vol] 21.0 U/L 11.0 -82.0 [facility] Lymphocytes Auto (Bld) [#/Vo l]Ordered By: Laci Palacios on 06-30-2022 Lymphocytes (Bld) [#/Vol] 0.9 10*3/uL 1.00-4.8 [facility] Lymphocytes/100 WBC Auto (Bl d)Ordered By: Laci Palacios on 06-30-2022 Lymphocytes/100 WBC (Bld) 12.6 % . [facility] MCH Auto (RBC) [Entitic mass ]Ordered By: Laci Palacios on 06-30-2022 MCH (RBC) [Entitic mass] 28.2 pg 24.7-34.3 [facility] MCHC Auto (RBC) [Mass/Vol]Or dered By: Laci Palacios on 06-30-2022 MCHC (RBC) [Mass/Vol] 33.0 g/dL 32.0-35.0 [facility] MCV Auto (RBC) [Entitic vol] Ordered By: Laci Palacios on 06-30-2022 MCV (RBC) [Entitic vol] 85.4 fL 80-100 [facility] Monocyte distribution width [Entitic volume] in Blood by AutomatedOrdered By: Laci Palacios on 06-30-2022 Monocyte distribution width Auto (Bld) [Entitic vol] 22.71 % 0.00-20.00 [facility] Comment on above: For adults in ED, MD W > 20.0 may be associated with a higher risk of sepsis during the first 12 hrs of hospital admission Monocytes Auto (Bld) [#/Vol] Ordered By: Laci Palacios on 06-30-2022 Monocytes (Bld) [#/Vol] 1.0 10*3/uL 0.0-0.8 [facility] Monocytes/100 WBC Auto (Bld) Ordered By: Laci Palacios on 06-30-2022 Monocytes/100 WBC (Bld) 14.3 % . [facility] Neutrophils Auto (Bld) [#/Vo l]Ordered By: Laci Palacios on 06-30-2022 Neutrophils (Bld) [#/Vol] 4.9 10*3/uL 1.8-7.7 [facility] Neutrophils/100 WBC Auto (Bl d)Ordered By: Laci Palacios on 06-30-2022 Neutrophils/100 WBC (Bld) 72.2 % . [facility] Nitrite Test strip Ql (U)Ord ered By: Laci Palacios on 06-30-2022 Nitrite Ql (U) Negative Negative [facility] No Panel InformationOrdered By: Laci Palacios on 06-30-2022 Estimated GFR (CKD-EPI) > 60.0 mL/Min [facility] Creatinine Clearanc e (Chem 134.58 [facility] Nucleated erythrocytes [Pres ence] in Blood by Automated countOrdered By: Laci Palacios on 06-30-2022 Nucleated RBC Auto Ql (Bld) 0.0 /100{WBC} 0-0.5 [facility] Platelet mean volume Auto (B ld) [Entitic vol]Ordered By: Laci Palacios on 06-30-2022 Platelet mean volume (Bld) [Entitic vol] 7.5 fL 6.3-10.7 [facility] Platelets Auto (Bld) [#/Vol] Ordered By: Laci Palacios on 06-30-2022 Platelets (Bld) [#/Vol] 177 10*3/uL 150-450 [facility] Potassium [Moles/volume] in Serum or PlasmaOrdered By: Laci Palacios on 06-30-2022 Potassium [Moles/Vol] 4.1 mmol/L 3.5-5.1 [facility] Protein Auto test strip (U) [Mass/Vol]Ordered By: Laci Palacios on 06-30-2022 Protein (U) [Mass/Vol] Negative Negative [facility] Protein [Mass/volume] in Ser um or PlasmaOrdered By: Laci Palacios on 06-30-2022 Protein [Mass/Vol] 6.3 g/dL 6.4-8.9 [facility] RBC Auto (Bld) [#/Vol]Ordere d By: Laci Palacios on 06-30-2022 RBC (Bld) [#/Vol] 4.14 10*6/uL 3.60-5.00 [facility] Serum or plasma albumin/glob ulin mass ratioOrdered By: Laci Palacios on 06-30-2022 Albumin/Globulin [Mass ratio] 1.3 {ratio} [facility] Serum or plasma anion gap de terminationOrdered By: Laci Palacios on 06-30-2022 Anion gap [Moles/Vol] 11.0 mmol/L 6.0-15.0 [facility] Sodium [Moles/volume] in Ser um or PlasmaOrdered By: Laci Palacios on 06-30-2022 Sodium [Moles/Vol] 132 mmol/L 136-145 [facility] Specific gravity Auto test s trip (U) [Rel density]Ordered By: Laci Palacios on 06-30-2022 Specific gravity (U) [Rel density] 1.005 1.001-1.030 [facility] Squamous epithelial cells de tection in urine sediment by light microscopyOrdered By: Laci Palacios on 06-30-2022 Epithelial cells.squamous LM Ql (Urine sed) 5-9 [HPF] 0-2 [facility] Urea nitrogen [Mass/volume] in Serum or PlasmaOrdered By: Laci Palacios on 06-30-2022 Urea nitrogen [Mass/Vol] 5 mg/dL 7-25 [facility] Urine bacteria detection by automated methodOrdered By: Laci Palacios on 06-30-2022 Bacteria Auto Ql (U) 2+ None Seen [facility] Urine clarity by refractomet ry automatedOrdered By: Laci Palacios on 06-30-2022 Clarity Refractometry automated (U) Clear Clear [facility] Urine glucose measurement by automated test strip (mass/volume)Ordered By: Laci Palacios on 06-30-2022 Glucose Auto test strip (U) [Mass/Vol] Normal mg/dL Normal [facility] Urine hemoglobin detection b y automated test stripOrdered By: Laci Palacios on 06-30-2022 Hemoglobin Auto test strip Ql (U) Trace Ne gative [facility] Urine leukocyte esterase det ection by automated test stripOrdered By: Laci Palacios on 06-30-2022 Leukocyte esterase Auto test strip Ql (U) 1+ Negative [facility] Urobilinogen Auto test strip (U) [Mass/Vol]Ordered By: Laci Palacios on 06-30-2022 Urobilinogen (U) [Mass/Vol] Normal mg/dL Normal [facility] WBC Auto (Bld) [#/Vol]Ordere d By: Laci Palacios on 06-30-2022 WBC (Bld) [#/Vol] 6.8 10*3/uL 3.8-11.6 [facility] pH Auto test strip (U)Ordere d By: Laci Palacios on 06-30-2022 pH (U) 7.5 [pH] 5.0-9.0 [facility] Chlamydia/GC Amplificationon 06-14-2022 Chlamydia Trachomotis, AZEB Negative Normal Negative [facility] Comment on above: Order Comment: Name Collection Type:: Clean-Voided Midstream Performed By: #### A REYMUNDO, CUU #### [facility] [address] [place] [address] Neisseria Gonorrhoeae, AZEB Negative Normal Negative [facility] Comment on above: Order Comment: Name Collection Type:: Clean-Voided Midstream Result Comment: Perf ormed at: =G - [facility] [address] [id number] Physician In Private Practice: Melva Rendon MD, Phone: [phone] PERFORMED BY: [place] [address] PATHOLOGIST [employer] JESSICA MANE M.D. Performed By: #### A REYMUNDO, CUU #### [facility] [address] [place] [address] Fungal Smearon 06-14-2022 Fungal Smear Fungus Smear Results No Yeast Like Elements Seen No Fungal Like Elements Seen Trichomonas Screen No Trichomonas Seen Trich Reference Reference range = None Seen PERFORMED BY: [place] [address] PATHOLOGIST [employer] JESSICA MANE M.D. [facility] Comment on above: Performed By: #### A DDONUAPLUS, CUU #### [facility] [address] [id number] [facility] Genital Cultureon 06-14-2022 Genital Culture Genital Results Light Normal Urogenital Heidy 2 Days No More GC Specimen not tested for Neisseria gonorrheae PERFORMED BY: [facility] [address] [place] [address] PATHOLOGIST [employer] JESSICA MANE M.D. [facility] Comment on above: Performed By: #### A DDONUAPLUS, CUU #### [facility] [address] [id number] [facility] Alanine aminotransferase [En zymatic activity/volume] in Serum or PlasmaOrdered By: PROVIDER TEMP on 06-13-2022 ALT [Catalytic activity/Vol] 10 U/L 7-52 [facility] Albumin [Mass/volume] in Ser um or Plasma by Bromocresol green (BCG) dye binding methoOrdered By: PROVIDER TEMP on 06-13-2022 Albumin BCG dye [Mass/Vol] 4.0 g/dL 3.5-5.7 [facility] Alkaline phosphatase [Enzyma tic activity/volume] in Serum or PlasmaOrdered By: PROVIDER TEMP on 06-13-2022 ALP [Catalytic activity/Vol] 33 U/L 34-104 [facility] Aspartate aminotransferase [ Enzymatic activity/volume] in Serum or PlasmaOrdered By: PROVIDER TEMP on 06-13-2022 AST [Catalytic activity/Vol] 14 U/L 13-39 [facility] Automated erythrocytes count in urine sediment (number/area)Ordered By: Jann Addison on 06-13-2022 RBC Auto (Urine sed) [#/Area] 0-1 [HPF] 0-4 [facility] Automated leukocytes count i n urine sediment (number/area)Ordered By: Jann Addison on 06-13-2022 WBC Auto (Urine sed) [#/Area] 3-4 [HPF] 0-4 [facility] Basic Metabolic Panelon 05-20 Anion gap [Moles/Vol] 11.0 mmol/L Normal 6.0-15.0 [facility] Comment on above: Performed By: #### A DDEDUAPLUS, CUU #### [facility] [address] [place] [address] [place] Calcium [Mass/Vol] 8.5 mg/dL Low 8.6-10.3 [facility] Comment on above: Performed By: #### A DDONUAPLUS, CUU #### [facility] [address] [place] [address] [place] Chloride [Moles/Vol] 102 mmol/L Normal 98-107 [facility] Comment on above: Performed By: #### A DDONUAPLUS, CUU #### [facility] [address] CO2 [Moles/Vol] 23.6 mmol/L Normal 21.0-31.0 [facility] Comment on above: Performed By: #### A DDEDUAPLUS, CUU #### [facility] [address] Creatinine [Mass/Vol] 0.58 mg/dL Low 0.60-1.20 [facility] Comment on above: Performed By: #### A DDEDUAPLUS CUU #### [facility] [address] [place] [address] [place] Creatinine Clr Calc Pharmacy 122.98 [facility] Comment on above: Performed By: #### A DDEDUAPLUS, CUU #### [facility] [address] [place] [address] [place] GFR/1.73 sq M.predicted MDRD (S/P/Bld) [Vol rate/Area] mL/min/{1.73_m2} [facility] Comment on above: Performed By: #### A DDEDUAPLUS, CUU #### [facility] [address] [place] [address] [place] Glucose [Mass/Vol] 114 mg/dL High 70-100 [facility] Comment on above: Result Comment: [place] Glucose Reference Range is dependent on time and content of last meal. Glucose of more than 200 mg/dL in a nonstressed, ambulatory subject supports the diagnosis of Diabetes Mellitus. ADA recommended reference range Performed By: #### A DDONUAPLUS, CUU #### [facility] [address] Potassium [Moles/Vol] 3.6 mmol/L Normal 3.5-5.1 [facility] Comment on above: Performed By: #### A DDONUAPLUS, CUU #### [facility] [address] Sodium [Moles/Vol] 133 mmol/L Low 136-145 [facility] Comment on above: Performed By: #### A DDONUAPLUS, CUU #### [facility] [address] Urea nitrogen [Mass/Vol] 9 mg/dL Normal 7-25 [facility] Comment on above: Performed By: #### A DDONUAPLUS, CUU #### [facility] [address] Basophils Auto (Bld) [#/Vol] Ordered By: PROVIDER TEMP on 06-13-2022 Basophils (Bld) [#/Vol] 0.1 10*3/uL 0.0-0.2 [facility] Basophils/100 WBC Auto (Bld) Ordered By: PROVIDER TEMP on 06-13-2022 Basophils/100 WBC (Bld) 0.8 % . [facility] Bilirubin Test strip Ql (U)O rdered By: Jann Addison on 06-13-2022 Bilirubin Ql (U) Negative Negative [facility] Bilirubin.direct [Mass/volum e] in Serum or PlasmaOrdered By: PROVIDER TEMP on 06-13-2022 Bilirubin.direct [Mass/Vol] 0.00 mg/dL 0.03-0.1 8 [facility] Comment on above: If the DBIL is less than 0.1, IBIL is not able to becalculated. Bilirubin.total [Mass/volume ] in Serum or PlasmaOrdered By: PROVIDER TEMP on 06-13-2022 Bilirubin [Mass/Vol] 0.3 mg/dL 0.3-1.0 [facility] Calcium [Mass/volume] in Ser um or PlasmaOrdered By: PROVIDER TEMP on 06-13-2022 Calcium [Mass/Vol] 8.5 mg/dL 8.6-10.3 [facility] Carbon dioxide, total [Moles /volume] in Serum or PlasmaOrdered By: PROVIDER TEMP on 06-13-2022 CO2 [Moles/Vol] 23.6 mmol/L 21.0-31.0 [facility] Chloride [Moles/volume] in S erick or PlasmaOrdered By: PROVIDER TEMP on 06-13-2022 Chloride [Moles/Vol] 102 mmol/L 98-107 [facility] Choriogonadotropin.beta subu nit [Units/volume] in Serum or PlasmaOrdered By: PROVIDER TEMP on 06-13-2022 HCG.beta subunit Qn 609225.00 m[IU]/mL [facility] Comment on above: Approximate Approxim ate hCG Gestational Age Range (mIU/ml) (weeks)0.2-1 5-50 1-2 50-500 2-3 100-5,000 3-4 500-10,000 4-5 1,000-50,000 5-6 10,000-100,000 6-8 15,000-200,000 8-12 10,000-100,000 Color Auto (U)Ordered By: Mohsen Addison on 06-13-2022 Color (U) Yellow Yellow [facility] Complete Blood Count Auto Di ffon 06-13-2022 Basophils (Bld) [#/Vol] 0.1 10*3/uL Normal 0.0-0.2 [facility] Comment on above: Result Comment: PERF ORMED BY: [place] [address] PATHOLOGIST [employer] JESSICA MANE M.D. Performed By: #### C BC #### [facility] [address] [place] [address] [place] Basophils/100 WBC (Bld) 0.8 % Normal . [facility] Comment on above: Performed By: #### C BC #### [facility] [address] [place] [address] [place] Eosinophils (Bld) [#/Vol] 0.0 10*3/uL Normal 0.0-0.45 [facility] Comment on above: Performed By: #### C BC #### [address] Eosinophils/100 WBC (Bld) 0.3 % Normal . [facility] Comment on above: Performed By: #### C BC #### [address] Erythrocyte distribution wid th (RBC) [Ratio] 13.0 % Normal 11.9-15.3 [facility] Comment on above: Performed By: #### C BC #### [address] Hematocrit (Bld) [Volume fraction] 36.5 % Normal 34.0-46.4 [facility] Comment on above: Performed By: #### C BC #### [address] Hemoglobin (Bld) [Mass/Vol] 12.3 g/dL Normal 11.8-15. 4 [facility] Comment on above: Performed By: #### C BC #### [address] Lymphocytes (Bld) [#/Vol] 2.0 10*3/uL Normal 1.00-4.8 [facility] Comment on above: Performed By: #### C BC #### [address] Lymphocytes/100 WBC (Bld) 23.8 % Normal . [facility] Comment on above: Performed By: #### C BC #### [address] MCH (RBC) [Entitic mass] 28.6 pg Normal 24.7-34.3 [facility] Comment on above: Performed By: #### C BC #### [address] MCV (RBC) [Entitic vol] 84.9 fL Normal 80-100 [facility] Comment on above: Performed By: #### C BC #### [facility] [address] Mean Corpuscular HGB Conc 33.7 g/dL Normal 32.0-35.0 [facility] Comment on above: Performed By: #### C BC #### [facility] [address] [place] [address] [place] Monocytes (Bld) [#/Vol] 0.6 10*3/uL Normal 0.0-0.8 [facility] Comment on above: Performed By: #### C BC #### [facility] [address] [place] [address] [place] Monocytes/100 WBC (Bld) 17.95 % Normal 0.00-20.00 [facility] Comment on above: Performed By: #### C BC #### [facility] [address] [place] [address] [place] Monocytes/100 WBC (Bld) 6.7 % Normal . [facility] Comment on above: Performed By: #### C BC #### [facility] [address] [place] [address] [place] Neutrophils (Bld) [#/Vol] 5.7 10*3/uL Normal 1.8-7.7 [facility] Comment on above: Performed By: #### C BC #### [facility] [address] [place] [id number] [place] Neutrophils/100 WBC (Bld) 68.4 % Normal . [facility] Comment on above: Performed By: #### C BC #### [facility] [address] [place] [address] [place] NRBC% 0.0 /100{WBC} Normal 0-0.5 [facility] Comment on above: Performed By: #### C BC #### [facility] [address] [place] [address] [place] Platelet mean volume (Bld) [Entitic vol] 7.6 fL Normal 6.3-10.7 [facility] Comment on above: Performed By: #### C BC #### [facility] [address] [place] [address] [place] Platelets (Bld) [#/Vol] 208 10*3/uL Normal 150-450 [facility] Comment on above: Performed By: #### C BC #### [facility] [address] [place] [address] [place] RBC (Bld) [#/Vol] 4.30 10*6/uL Normal 3.60-5.00 [facility] Comment on above: Performed By: #### C BC #### [facility] [address] [place] [id number] [place] WBC (Bld) [#/Vol] 8.4 10*3/uL Normal 3.8-11.6 [facility] Comment on above: Performed By: #### C BC #### [address] Creatinine [Mass/volume] in Serum or PlasmaOrdered By: PROVIDER TEMP on 06-13-2022 Creatinine [Mass/Vol] 0.58 mg/dL 0.60-1.20 [facility] Dipstick and Microscopicon 0 06-13-2022 Appearance (U) Clear Normal Clear [facility] Comment on above: Order Comment: Name Collection Type:: Clean-Voided Midstream Performed By: #### U HCG, ADDONUAPLUS #### [place] [address] [place] Bacteria,Urine None Seen Normal None Seen [facility] Comment on above: Order Comment: Name Collection Type:: Clean-Voided Midstream Performed By: #### U HCG, ADDONUAPLUS #### [facility] [address] [place] [address] [place] Bilirubin,Urine Negative Normal Negative [facility] Comment on above: Order Comment: Name Collection Type:: Clean-Voided Midstream Performed By: #### U HCG, ADDONUAPLUS #### [facility] [address] [place] [id number] [place] Color (U) Yellow Normal Yellow [facility] Comment on above: Order Comment: Name Collection Type:: Clean-Voided Midstream Performed By: #### U HCG, ADDONUAPLUS #### [facility] [address] [place] [address] Glucose Ql (U) Normal Normal Normal [facility] Comment on above: Order Comment: Name Collection Type:: Clean-Voided Midstream Performed By: #### U HCG, ADDONUAPLUS #### [facility] [address] [place] [address] Hyaline Casts,Urine 0-8 Normal 0-8 [facility] Comment on above: Order Comment: Name Collection Type:: Clean-Voided Midstream Performed By: #### U HCG, ADDONUAPLUS #### [facility] [address] [place] [address] Ketones Ql (U) 1+ High Negative [facility] Comment on above: Order Comment: Name Collection Type:: Clean-Voided Midstream Performed By: #### U HCG, ADDONUAPLUS #### [address] Leukocyte esterase Test stri p Ql (U) 1+ High Negative [facility] Comment on above: Order Comment: Name Collection Type:: Clean-Voided Midstream Performed By: #### U HCG, ADDONUAPLUS #### [address] Nitrite,Urine Negative Normal Negative [facility] Comment on above: Order Comment: Name Collection Type:: Clean-Voided Midstream Performed By: #### U HCG, ADDONUAPLUS #### [facility] [address] [place] [address] Occult Blood,Urine 1+ High Negative [facility] Comment on above: Order Comment: Name Collection Type:: Clean-Voided Midstream Performed By: #### U HCG, ADDONUAPLUS #### [address] pH (U) 5.5 [pH] Normal 5.0-9.0 [facility] Comment on above: Order Comment: Name Collection Type:: Clean-Voided Midstream Performed By: #### U HCG, ADDONUAPLUS #### [address] Protein,Urine Negative Normal Negative [facility] Comment on above: Order Comment: Name Collection Type:: Clean-Voided Midstream Performed By: #### U HCG, ADDONUAPLUS #### [address] RBC LM.HPF (Urine sed) [#/Area] 0 /[HPF] Normal 0-4 [facility] Comment on above: Order Comment: Name Collection Type:: Clean-Voided Midstream Performed By: #### U HCG, ADDONUAPLUS #### [address] Specificy [place],Urine 1.009 Normal 1.001-1.030 [facility] Comment on above: Order Comment: Name Collection Type:: Clean-Voided Midstream Performed By: #### U HCG, ADDONUAPLUS #### [address] Squamous Epithelial Cell,Urine 0-1 Normal 0-2 [facility] Comment on above: Order Comment: Name Collection Type:: Clean-Voided Midstream Performed By: #### U HCG, ADDONUAPLUS #### [address] Urobilinogen,Urine Normal Normal Normal [facility] Comment on above: Order Comment: Name Collection Type:: Clean-Voided Midstream Performed By: #### U HCG, ADDONUAPLUS #### [place] [address] [place] WBC,Urine 3-4 Normal 0-4 [facility] Comment on above: Order Comment: Name Collection Type:: Clean-Voided Midstream Performed By: #### U HCG, ADDONUAPLUS #### [address] Eosinophils Auto (Bld) [#/Vo l]Ordered By: PROVIDER TEMP on 06-13-2022 Eosinophils (Bld) [#/Vol] 0.0 10*3/uL 0.0-0.45 [facility] Eosinophils/100 WBC Auto (Bl d)Ordered By: PROVIDER TEMP on 06-13-2022 Eosinophils/100 WBC (Bld) 0.3 % . [facility] Erythrocyte distribution wid th Auto (RBC) [Ratio]Ordered By: PROVIDER TEMP on 06-13-2022 Erythrocyte distribution wid th (RBC) [Ratio] 13.0 % 11.9-15.3 [facility] Fungal cultureOrdered By: Mohsen Addison on 06-13-2022 Fungus identified Cx Nom (Unsp spec) [facility] Genital specimen bacteria id entification by aerobic cultureOrdered By: Jann Addison on 06-13-2022 Bacteria identified Aer cx N om (Genital specimen) [facility] Globulin Calc (S) [Mass/Vol] Ordered By: PROVIDER TEMP on 06-13-2022 Globulin (S) [Mass/Vol] 3.0 g/dL [facility] Glucose [Mass/volume] in Ser um or PlasmaOrdered By: PROVIDER TEMP on 06-13-2022 Glucose [Mass/Vol] 114 mg/dL 70-100 [facility] Comment on above: ADA recommended refe rence rangeRandom Glucose Reference Range is dependent on time and content of last meal. Glucose of more than 200 mg/dL in a nonstressed, ambulatory subject supports the diagnosis of Diabetes Mellitus. HCG ( test) IA.rapi d Ql (U)Ordered By: PROVIDER TEMP on 06-13-2022 HCG ( test) Ql (U) Positive [facility] HCG,Quantitativeon 3 HCG,Quantitative 992204.00 m[iU]/mL Normal [facility] Comment on above: Result Comment: Appr oximate Approximate hCG Gestational Age Range (mIU/ml) (weeks) 0.2-1 5-50 1-2 50-500 2-3 100-5,000 3-4 500-10,000 4-5 1,000-50,000 5-6 10,000-100,000 6-8 15,000-200,000 8-12 10,000-100,000 PERFORMED BY: [facility] [address] [place] [address] PATHOLOGIST [employer] JESSICA MANE M.D. Performed By: #### A DDONUAPLUS, CUU #### [address] HCG,Urineon 06-13-2022 Beta HCG ( test) Ql (U) Positive High [facility] Comment on above: Order Comment: Name Collection Type:: Clean-Voided Midstream Result Comment: PERF ORMED BY: [place] [address] PATHOLOGIST [employer] JESSICA MANE M.D. Performed By: #### U HCG, ADDONUAPLUS #### [address] Hematocrit Auto (Bld) [Volum e fraction]Ordered By: PROVIDER TEMP on 06-13-2022 Hematocrit (Bld) [Volume fraction] 36.5 % 3 4.0-46.4 [facility] Hemoglobin [Mass/volume] in BloodOrdered By: PROVIDER TEMP on 06-13-2022 Hemoglobin (Bld) [Mass/Vol] 12.3 g/dL 11.8-15. 4 [facility] Hepatic Panelon 06-13-2022 Albumin [Mass/Vol] 4.0 g/dL Normal 3.5-5.7 [facility] Comment on above: Performed By: #### H EPATIC, BMP, LIPASE, HCGQNT #### [facility] [address] [place] [address] Albumin/Globulin [Mass ratio] 1.3 {ratio} Normal [facility] Comment on above: Performed By: #### H EPATIC, BMP, LIPASE, HCGQNT #### [facility] [address] [place] [address] ALP [Catalytic activity/Vol] 33 U/L Low 34-104 [facility] Comment on above: Performed By: #### H EPATIC, BMP, LIPASE, HCGQNT #### [facility] [address] [place] [address] ALT [Catalytic activity/Vol] 10 U/L Normal 7-52 [facility] Comment on above: Performed By: #### H EPATIC, BMP, LIPASE, HCGQNT #### [address] AST [Catalytic activity/Vol] 14 U/L Normal 13-39 [facility] Comment on above: Performed By: #### H EPATIC, BMP, LIPASE, HCGQNT #### [address] Bilirubin [Mass/Vol] 0.3 mg/dL Normal 0.3-1.0 [facility] Comment on above: Performed By: #### H EPATIC, BMP, LIPASE, HCGQNT #### [address] Bilirubin,Indirect 0.3 mg/dL Normal [facility] Comment on above: Performed By: #### H EPATIC, BMP, LIPASE, HCGQNT #### [address] Bilirubin.indirect [Mass/Vol] 0.00 mg/dL Low 0.03-0 .18 [facility] Comment on above: Result Comment: If t he DBIL is less than 0.1, IBIL is not able to be calculated. Performed By: #### H EPATIC, BMP, LIPASE, HCGQNT #### [address] Globulin (S) [Mass/Vol] 3.0 g/dL Normal [facility] Comment on above: Performed By: #### H EPATIC, BMP, LIPASE, HCGQNT #### [address] [address] Protein [Mass/Vol] 7.0 g/dL Normal 6.4-8.9 [facility] Comment on above: Performed By: #### H EPATIC, BMP, LIPASE, HCGQNT #### [address] Ketones Auto test strip (U) [Mass/Vol]Ordered By: Jann Addison on 04-26-2023 Ketones (U) [Mass/Vol] 1+ Negative Fi [facility] Laboratory - Microbiology an d Antimicrobial susceptibilityOrdered By: Jann Addison on 06-13-2022 C. trachomatis DNA AZEB+probe Ql (Unsp spec) Negative Negative [facility] N. gonorrhoeae DNA AZEB+probe Ql (Unsp spec) Negative Negative [facility] Comment on above: Performed at: =[address] [id number] Director: Melva Rendon MD, Phone: [phone] Laboratory - UrinalysisOrder ed By: Jann Addison on 06-13-2022 Hyaline casts LM Ql (Urine sed) 0-8 [LPF] 0-8 [facility] Leukocytes [#/volume] correc francois for nucleated erythrocytes in Blood by Automated counOrdered By: PROVIDER TEMP on 06-13-2022 WBC corrected for nucl RBC A uto (Bld) [#/Vol] 8.4 10*3/uL 3.8-11.6 [facility] Lipaseon 06-13-2022 Lipase [Catalytic activity/Vol] 33.0 U/L Normal 11.0 -82.0 [facility] Comment on above: Performed By: #### A NELL DWYERU #### [address] Lipase [Enzymatic activity/v olume] in Serum or PlasmaOrdered By: PROVIDER TEMP on 06-13-2022 Lipase [Catalytic activity/Vol] 33.0 U/L 11.0 -82.0 [facility] Lymphocytes Auto (Bld) [#/Vo l]Ordered By: PROVIDER TEMP on 06-13-2022 Lymphocytes (Bld) [#/Vol] 2.0 10*3/uL 1.00-4.8 [facility] Lymphocytes/100 WBC Auto (Bl d)Ordered By: PROVIDER TEMP on 06-13-2022 Lymphocytes/100 WBC (Bld) 23.8 % . [facility] MCH Auto (RBC) [Entitic mass ]Ordered By: PROVIDER TEMP on 06-13-2022 MCH (RBC) [Entitic mass] 28.6 pg 24.7-34.3 [facility] MCHC Auto (RBC) [Mass/Vol]Or dered By: PROVIDER TEMP on 06-13-2022 MCHC (RBC) [Mass/Vol] 33.7 g/dL 32.0-35.0 [facility] MCV Auto (RBC) [Entitic vol] Ordered By: PROVIDER TEMP on 06-13-2022 MCV (RBC) [Entitic vol] 84.9 fL 80-100 [facility] Monocyte distribution width [Entitic volume] in Blood by AutomatedOrdered By: PROVIDER TEMP on 06-13-2022 Monocyte distribution width Auto (Bld) [Entitic vol] 17.95 % 0.00-20.00 [facility] Monocytes Auto (Bld) [#/Vol] Ordered By: PROVIDER TEMP on 06-13-2022 Monocytes (Bld) [#/Vol] 0.6 10*3/uL 0.0-0.8 [facility] Monocytes/100 WBC Auto (Bld) Ordered By: PROVIDER TEMP on 06-13-2022 Monocytes/100 WBC (Bld) 6.7 % . [facility] Neutrophils Auto (Bld) [#/Vo l]Ordered By: PROVIDER TEMP on 06-13-2022 Neutrophils (Bld) [#/Vol] 5.7 10*3/uL 1.8-7.7 [facility] Neutrophils/100 WBC Auto (Bl d)Ordered By: PROVIDER TEMP on 06-13-2022 Neutrophils/100 WBC (Bld) 68.4 % . [facility] Nitrite Test strip Ql (U)Ord ered By: Jann Addison on 06-13-2022 Nitrite Ql (U) Negative Negative [facility] No Panel InformationOrdered By: PROVIDER TEMP on 06-13-2022 Estimated GFR (CKD-EPI) > 60.0 mL/Min [facility] Creatinine Clearanc e (Chem 122.98 [facility] Nucleated erythrocytes [Pres ence] in Blood by Automated countOrdered By: PROVIDER TEMP on 06-13-2022 Nucleated RBC Auto Ql (Bld) 0.0 /100{WBC} 0-0.5 [facility] Platelet mean volume Auto (B ld) [Entitic vol]Ordered By: PROVIDER TEMP on 06-13-2022 Platelet mean volume (Bld) [Entitic vol] 7.6 fL 6.3-10.7 [facility] Platelets Auto (Bld) [#/Vol] Ordered By: PROVIDER TEMP on 06-13-2022 Platelets (Bld) [#/Vol] 208 10*3/uL 150-450 [facility] Potassium [Moles/volume] in Serum or PlasmaOrdered By: PROVIDER TEMP on 06-13-2022 Potassium [Moles/Vol] 3.6 mmol/L 3.5-5.1 [facility] Protein Auto test strip (U) [Mass/Vol]Ordered By: Jann Addison on 06-13-2022 Protein (U) [Mass/Vol] Negative Negative [facility] Protein [Mass/volume] in Ser um or PlasmaOrdered By: PROVIDER TEMP on 06-13-2022 Protein [Mass/Vol] 7.0 g/dL 6.4-8.9 [facility] RBC Auto (Bld) [#/Vol]Ordere d By: PROVIDER TEMP on 06-13-2022 RBC (Bld) [#/Vol] 4.30 10*6/uL 3.60-5.00 [facility] Serum or plasma albumin/glob ulin mass ratioOrdered By: PROVIDER TEMP on 06-13-2022 Albumin/Globulin [Mass ratio] 1.3 {ratio} [facility] Serum or plasma anion gap de terminationOrdered By: PROVIDER TEMP on 06-13-2022 Anion gap [Moles/Vol] 11.0 mmol/L 6.0-15.0 [facility] Serum or plasma non-glucuron idated bilirubin measurement (mass/volume)Ordered By: PROVIDER TEMP on 06-13-2022 Bilirubin.indirect [Mass/Vol] 0.3 mg/dL [facility] Sodium [Moles/volume] in Ser um or PlasmaOrdered By: PROVIDER TEMP on 06-13-2022 Sodium [Moles/Vol] 133 mmol/L 136-145 [facility] Specific gravity Auto test s trip (U) [Rel density]Ordered By: Jann Addison on 06-13-2022 Specific gravity (U) [Rel density] 1.009 1.001-1.030 [facility] Squamous epithelial cells de tection in urine sediment by light microscopyOrdered By: Jann Addison on 06-13-2022 Epithelial cells.squamous LM Ql (Urine sed) 0-1 [HPF] 0-2 [facility] Trichomonas vaginalis detect ion by wet preparationOrdered By: Jann Addison on 06-13-2022 T. vaginalis Wet prep Ql (Unsp spec) [facility] US OB <= 14 weeks fetuson US OB <= 14 weeks fetus [place] [address] Ultrasound Report Signed Patient: Marissa Han MR#: [id number] : 1990 Acct:[id number] Age/Sex: 32 / F ADM Date: 06/13/22 Loc: ER Room: Type: [facility] ER Attending Dr: Ordering Provider: Jann Addison DO Date of Service: 06/13/22 US/US OB <= 14 weeks fetus: Abdominal Pain Copies to: Jann Addison DO US OB <= 14 weeks fetus 06/13/2022 8:18 PM SIGNS AND SYMPTOMS: Abdominal cramping and bleeding COMPARISON: None. TECHNIQUE: Limited pelvic ultrasound using transvesical sonography. FINDINGS: An early intrauterine is identified. The visualized yolk sac measures 0.27 cm. The visualized pole has an estimated gestational age of 8 weeks and 4 days by crown-rump length which measures 1.95 cm . A heart rate is identified at 181 bpm. A normal amount of amniotic fluid is present. There is no evidence for placenta previa or subchorionic hemorrhage. Pelvic survey reveals no gross abnormalities. US/US OB <= 14 weeks fetus IMPRESSION: Single live IUP with an estimated gestational age of 8 weeks and 4 days with an estimated date of delivery of 01/19/2023 and normal heart rate. Impression dictated by: Jerry Herman M.D.06/13/2022 9:10 PM Dictation Location: RADIO-PC-13 Tech: Lulu Spencer Transcribed By: ADRIA 06/13/222109 Dictated By: Jerry Herman II, MD 06/13/222108 Signed By: 06/13/222109 Normal [facility] Urea nitrogen [Mass/volume] in Serum or PlasmaOrdered By: PROVIDER LEWIS on 06-13-2022 Urea nitrogen [Mass/Vol] 9 mg/dL 7-25 [facility] Urine bacteria detection by automated methodOrdered By: Jann Addison on 06-13-2022 Bacteria Auto Ql (U) None seen None Seen [facility] Urine clarity by refractomet ry automatedOrdered By: Jann Addison on 06-13-2022 Clarity Refractometry automated (U) Clear Clear [facility] Urine glucose measurement by automated test strip (mass/volume)Ordered By: Jann Addison on 06-13-2022 Glucose Auto test strip (U) [Mass/Vol] Normal mg/dL Normal [facility] Urine hemoglobin detection b y automated test stripOrdered By: Jann Addison on 06-13-2022 Hemoglobin Auto test strip Ql (U) 1+ Ne gative [facility] Urine leukocyte esterase det ection by automated test stripOrdered By: Jann Addison on 06-13-2022 Leukocyte esterase Auto test strip Ql (U) 1+ Negative [facility] Urobilinogen Auto test strip (U) [Mass/Vol]Ordered By: Jann Addison on 06-13-2022 Urobilinogen (U) [Mass/Vol] Normal mg/dL Normal [facility] WBC Auto (Bld) [#/Vol]Ordere d By: GALO SAUCEDO on 06-13-2022 WBC (Bld) [#/Vol] 8.4 10*3/uL 3.8-11.6 [facility] pH Auto test strip (U)Ordere d By: Jann Addison on 06-13-2022 pH (U) 5.5 [pH] 5.0-9.0 [facility] Choriogonadotropin.beta subu nit [Units/volume] in Serum or PlasmaOrdered By: Aman Colon on 05-26-2022 [place] [address].00 m[IU]/mL [facility] Comment on above: Approximate Approxim ate hCG Gestational Age Range (mIU/ml) (weeks)0.2-1 5-50 1-2 50-500 2-3 100-5,000 3-4 500-10,000 4-5 1,000-50,000 5-6 10,000-100,000 6-8 15,000-200,000 8-12 10,000-100,000 HCG,Quantitativeon 3 HCG,Quantitative 48201.00 m[iU]/mL Normal [facility] Comment on above: Result Comment: Appr oximate Approximate hCG Gestational Age Range (mIU/ml) (weeks) 0.2-1 5-50 1-2 50-500 2-3 100-5,000 3-4 500-10,000 4-5 1,000-50,000 5-6 10,000-100,000 6-8 15,000-200,000 8-12 10,000-100,000 PERFORMED BY: [place] [address] PATHOLOGIST [employer] JESSICA MANE M.D. Performed By: #### H CGQNT #### [address] ABO/Rh Retypeon 05-24-2022 ABO/RH Recheck Result Positive Normal [facility] Comment on above: Result Comment: PERF ORMED BY: [place] [address] PATHOLOGIST [employer] JESSICA MANE M.D. Automated erythrocytes count in urine sediment (number/area)Ordered By: PROVIDER TEMP on 05-24-2022 RBC Auto (Urine sed) [#/Area] 1-2 [HPF] 0-4 [facility] Automated leukocytes count i n urine sediment (number/area)Ordered By: PROVIDER TEMP on 05-24-2022 WBC Auto (Urine sed) [#/Area] 20-49 [HPF] 0-4 [facility] Automated urine hyaline cast s count (number/volume)Ordered By: PROVIDER TEMP on 05-24-2022 Hyaline casts Auto (U) [#/Vol] None seen [LPF] 0-1 [facility] Basic Metabolic Panelon 04-0 Anion gap [Moles/Vol] 8.6 mmol/L Normal 6.0-15.0 [facility] Comment on above: Performed By: #### B MP #### [facility] [address] Calcium [Mass/Vol] 9.5 mg/dL Normal 8.6-10.3 [facility] Comment on above: Performed By: #### B MP #### [facility] [address] [place] [address] [place] Chloride [Moles/Vol] 104 mmol/L Normal 98-107 [facility] Comment on above: Performed By: #### B MP #### [facility] [address] CO2 [Moles/Vol] 26.8 mmol/L Normal 21.0-31.0 [facility] Comment on above: Performed By: #### B MP #### [facility] [address] [place] [address] [place] Creatinine [Mass/Vol] 0.65 mg/dL Normal 0.60-1.20 [facility] Comment on above: Performed By: #### B MP #### [facility] [address] [place] [address] [place] Creatinine Clr Calc Pharmacy 109.74 Normal [facility] Comment on above: Result Comment: PERF ORMED BY: [place] [address] PATHOLOGIST [employer] JESSICA MANE M.D. Performed By: #### B MP #### [facility] [address] [place] [address] [place] GFR/1.73 sq M.predicted MDRD (S/P/Bld) [Vol rate/Area] mL/min/{1.73_m2} Normal [facility] Comment on above: Performed By: #### B MP #### [facility] [address] [place] [address] [place] Glucose [Mass/Vol] 90 mg/dL Normal 70-100 [facility] Comment on above: Result Comment: [place] Glucose Reference Range is dependent on time and content of last meal. Glucose of more than 200 mg/dL in a nonstressed, ambulatory subject supports the diagnosis of Diabetes Mellitus. ADA recommended reference range Performed By: #### B MP #### [facility] [address] [place] [id number] [facility] Potassium [Moles/Vol] 4.4 mmol/L Normal 3.5-5.1 [facility] Comment on above: Performed By: #### B MP #### [facility] [address] Sodium [Moles/Vol] 135 mmol/L Low 136-145 [facility] Comment on above: Performed By: #### B MP #### [facility] [address] [place] [id number] [facility] Urea nitrogen [Mass/Vol] 10 mg/dL Normal 7-25 [facility] Comment on above: Performed By: #### B MP #### [facility] [address] Basophils Auto (Bld) [#/Vol] Ordered By: Aman Colon on 05-24-2022 Basophils (Bld) [#/Vol] 0.1 10*3/uL 0.0-0.2 [facility] Basophils/100 WBC Auto (Bld) Ordered By: Aman Colon on 05-24-2022 Basophils/100 WBC (Bld) 0.9 % . [facility] Bilirubin Test strip Ql (U)O rdered By: GALO TEMP on 05-24-2022 Bilirubin Ql (U) Negative Negative [facility] Calcium [Mass/volume] in Ser um or PlasmaOrdered By: Aman Colon on 05-24-2022 Calcium [Mass/Vol] 9.5 mg/dL 8.6-10.3 [facility] Carbon dioxide, total [Moles /volume] in Serum or PlasmaOrdered By: Aman Colon on 05-24-2022 CO2 [Moles/Vol] 26.8 mmol/L 21.0-31.0 [facility] Casts typing in urine sedime nt by light microscopyOrdered By: PROVIDER TEMP on 05-24-2022 Casts LM Nom (Urine sed) None seen [LPF] None S een [facility] Chloride [Moles/volume] in S erick or PlasmaOrdered By: Aman Colon on 05-24-2022 Chloride [Moles/Vol] 104 mmol/L 98-107 [facility] Choriogonadotropin.beta subu nit [Units/volume] in Serum or PlasmaOrdered By: Aman Colon on 05-24-2022 HCG.beta subunit Qn 9975.00 m[IU]/mL [facility] Comment on above: Approximate Approxim ate hCG Gestational Age Range (mIU/ml) (weeks)0.2-1 5-50 1-2 50-500 2-3 100-5,000 3-4 500-10,000 4-5 1,000-50,000 5-6 10,000-100,000 6-8 15,000-200,000 8-12 10,000-100,000 Color Auto (U)Ordered By: AMRITA ANDERSON TEMP on 05-24-2022 Color (U) Yellow Yellow [facility] Complete Blood Count Auto Di ffon 05-24-2022 Basophils (Bld) [#/Vol] 0.1 10*3/uL Normal 0.0-0.2 [facility] Comment on above: Result Comment: PERF ORMED BY: [place] [address] PATHOLOGIST [employer] JESSICA MANE M.D. Performed By: #### C BC #### [facility] [address] [place] [address] [place] Basophils/100 WBC (Bld) 0.9 % Normal . [facility] Comment on above: Performed By: #### C BC #### [facility] [address] Eosinophils (Bld) [#/Vol] 0.1 10*3/uL Normal 0.0-0.45 [facility] Comment on above: Performed By: #### C BC #### [address] Eosinophils/100 WBC (Bld) 1.2 % Normal . [facility] Comment on above: Performed By: #### C BC #### [address] Erythrocyte distribution wid th (RBC) [Ratio] 13.1 % Normal 11.9-15.3 [facility] Comment on above: Performed By: #### C BC #### [address] Hematocrit (Bld) [Volume fraction] 38.1 % Normal 34.0-46.4 [facility] Comment on above: Performed By: #### C BC #### [address] Hemoglobin (Bld) [Mass/Vol] 12.7 g/dL Normal 11.8-15. 4 [facility] Comment on above: Performed By: #### C BC #### [address] Lymphocytes (Bld) [#/Vol] 2.1 10*3/uL Normal 1.00-4.8 [facility] Comment on above: Performed By: #### C BC #### [address] Lymphocytes/100 WBC (Bld) 29.0 % Normal . [facility] Comment on above: Performed By: #### C BC #### [address] MCH (RBC) [Entitic mass] 28.4 pg Normal 24.7-34.3 [facility] Comment on above: Performed By: #### C BC #### [address] MCV (RBC) [Entitic vol] 85.1 fL Normal 80-100 [facility] Comment on above: Performed By: #### C BC #### [address] Mean Corpuscular HGB Conc 33.3 g/dL Normal 32.0-35.0 [facility] Comment on above: Performed By: #### C BC #### [facility] [address] Monocytes (Bld) [#/Vol] 0.6 10*3/uL Normal 0.0-0.8 [facility] Comment on above: Performed By: #### C BC #### [facility] [address] [place] [address] [place] Monocytes/100 WBC (Bld) 18.05 % Normal 0.00-20.00 [facility] Comment on above: Performed By: #### C BC #### [facility] [address] Monocytes/100 WBC (Bld) 8.3 % Normal . [facility] Comment on above: Performed By: #### C BC #### [facility] [address] Neutrophils (Bld) [#/Vol] 4.4 10*3/uL Normal 1.8-7.7 [facility] Comment on above: Performed By: #### C BC #### [facility] [address] Neutrophils/100 WBC (Bld) 60.6 % Normal . [facility] Comment on above: Performed By: #### C BC #### [facility] [address] [place] [address] [place] NRBC% 0.1 /100{WBC} Normal 0-0.5 [facility] Comment on above: Performed By: #### C BC #### [facility] [address] [place] [address] [place] Platelet mean volume (Bld) [Entitic vol] 7.5 fL Normal 6.3-10.7 [facility] Comment on above: Performed By: #### C BC #### [facility] [address] Platelets (Bld) [#/Vol] 263 10*3/uL Normal 150-450 [facility] Comment on above: Performed By: #### C BC #### [facility] [address] [place] [address] [place] RBC (Bld) [#/Vol] 4.48 10*6/uL Normal 3.60-5.00 [facility] Comment on above: Performed By: #### C BC #### [facility] [address] [place] [id number] [place] WBC (Bld) [#/Vol] 7.3 10*3/uL Normal 3.8-11.6 [facility] Comment on above: Performed By: #### C BC #### [facility] [address] Creatinine [Mass/volume] in Serum or PlasmaOrdered By: Aman Colon on 05-24-2022 Creatinine [Mass/Vol] 0.65 mg/dL 0.60-1.20 [facility] Dipstick and Microscopicon 0 05-24-2022 Appearance (U) Turbid Critically abnormal Clear [facility] Comment on above: Order Comment: Name Collection Type:: Clean-Voided Midstream Performed By: #### A DDONUAPLUS, CUU #### [facility] [address] [place] [address] [place] Bacteria,Urine 3+ High None Seen [facility] Comment on above: Order Comment: Name Collection Type:: Clean-Voided Midstream Performed By: #### A DDONUAPLUS, CUU #### [facility] [address] [place] [address] [place] Bilirubin,Urine Negative Normal Negative [facility] Comment on above: Order Comment: Name Collection Type:: Clean-Voided Midstream Performed By: #### A DDONUAPLUS, CUU #### [facility] [address] [place] [address] [place] Color (U) Yellow Normal Yellow [facility] Comment on above: Order Comment: Name Collection Type:: Clean-Voided Midstream Performed By: #### A DDONUAPLUS, CUU #### [facility] [address] [place] [address] [place] Glucose Ql (U) Normal Normal Normal [facility] Comment on above: Order Comment: Name Collection Type:: Clean-Voided Midstream Performed By: #### A DDONUAPLUS, CUU #### [facility] [address] [place] [address] [place] Hyaline Casts,Urine None Seen Normal 0-1 [facility] Comment on above: Order Comment: Name Collection Type:: Clean-Voided Midstream Performed By: #### A DDONUAPLUS, CUU #### [place] [address] [place] Ketones Ql (U) Negative Normal Negative [facility] Comment on above: Order Comment: Name Collection Type:: Clean-Voided Midstream Performed By: #### A DDONUAPLUS, CUU #### [place] [address] [place] Leukocyte esterase Test stri p Ql (U) 4+ High Negative [facility] Comment on above: Order Comment: Name Collection Type:: Clean-Voided Midstream Performed By: #### A DDONUAPLUS, CUU #### [place] [address] [place] Nitrite,Urine Negative Normal Negative [facility] Comment on above: Order Comment: Name Collection Type:: Clean-Voided Midstream Performed By: #### A DDONUAPLUS, CUU #### [facility] [address] [place] [address] [place] Occult Blood,Urine Negative Normal Negative [facility] Comment on above: Order Comment: Name Collection Type:: Clean-Voided Midstream Result Comment: PERF ORMED BY: [place] [address] PATHOLOGIST [employer] JESSICA MANE M.D. Performed By: #### A DDONUAPLUS, CUU #### [place] [address] [place] Other Casts,Urine None Seen Normal None Seen [facility] Comment on above: Order Comment: Name Collection Type:: Clean-Voided Midstream Result Comment: PERF ORMED BY: [place] [address] PATHOLOGIST [employer] JESSICA MANE M.D. Performed By: #### A DDONUAPLUS, CUU #### [address] pH (U) 8.0 [pH] Normal 5.0-9.0 [facility] Comment on above: Order Comment: Name Collection Type:: Clean-Voided Midstream Performed By: #### A DDONUAPLUS, CUU #### [address] Protein,Urine Trace High Negative [facility] Comment on above: Order Comment: Name Collection Type:: Clean-Voided Midstream Performed By: #### A DDONUAPLUS, CUU #### [address] RBC,Urine 1-2 Normal 0-4 [facility] Comment on above: Order Comment: Name Collection Type:: Clean-Voided Midstream Performed By: #### A DDONUAPLUS, CUU #### [address] Specificy [place],Urine 1.016 Normal 1.001-1.030 [facility] Comment on above: Order Comment: Name Collection Type:: Clean-Voided Midstream Performed By: #### A DDONUAPLUS, CUU #### [address] Squamous Epithelial Cell,Urine 10-19 High 0-2 [facility] Comment on above: Order Comment: Name Collection Type:: Clean-Voided Midstream Performed By: #### A DDONUAPLUS, CUU #### [address] Urobilinogen,Urine Normal Normal Normal [facility] Comment on above: Order Comment: Name Collection Type:: Clean-Voided Midstream Performed By: #### A DDONUAPLUS, CUU #### [address] WBC,Urine 20-49 High 0-4 [facility] Comment on above: Order Comment: Name Collection Type:: Clean-Voided Midstream Performed By: #### A DDONUAGISSELL CUU #### [facility] [address] Eosinophils Auto (Bld) [#/Vo l]Ordered By: Aman Colon on 05-24-2022 Eosinophils (Bld) [#/Vol] 0.1 10*3/uL 0.0-0.45 [facility] Eosinophils/100 WBC Auto (Bl d)Ordered By: [facility] on 05-24-[facility]22 Eosinophils/100 WBC (Bld) 1.2 % . [facility] Erythrocyte distribution wid th Auto (RBC) [Ratio]Ordered By: Aman Colon on 05-24-2022 Erythrocyte distribution wid th (RBC) [Ratio] 13.1 % 11.9-15.3 [facility] Glucose [Mass/volume] in Ser um or PlasmaOrdered By: Aman Colon on 05-24-2022 Glucose [Mass/Vol] 90 mg/dL 70-100 [facility] Comment on above: ADA recommended refe rence rangeRandom Glucose Reference Range is dependent on time and content of last meal. Glucose of more than 200 mg/dL in a nonstressed, ambulatory subject supports the diagnosis of Diabetes Mellitus. HCG,Quantitativeon 3 HCG,Quantitative 9975.00 m[iU]/mL Normal [facility] Comment on above: Result Comment: Appr oximate Approximate hCG Gestational Age Range (mIU/ml) (weeks) 0.2-1 5-50 1-2 50-500 2-3 100-5,000 3-4 500-10,000 4-5 1,000-50,000 5-6 10,000-100,000 6-8 15,000-200,000 8-12 10,000-100,000 PERFORMED BY: [place] [address] PATHOLOGIST [employer] JESSICA MANE M.D. Performed By: #### H CGQNT #### [facility] [address] [place] [id number] [facility] Hematocrit Auto (Bld) [Volum e fraction]Ordered By: Aman Colon on 05-24-2022 Hematocrit (Bld) [Volume fraction] 38.1 % 3 4.0-46.4 [facility] Hemoglobin [Mass/volume] in BloodOrdered By: Aman Colon on 05-24-2022 Hemoglobin (Bld) [Mass/Vol] 12.7 g/dL 11.8-15. 4 [facility] Ketones Auto test strip (U) [Mass/Vol]Ordered By: PROVIDER TEMP on 05-24-2022 Ketones (U) [Mass/Vol] Negative [facility] [facility] Leukocytes [#/volume] correc francois for nucleated erythrocytes in Blood by Automated counOrdered By: Aman Colon on 05-24-2022 WBC corrected for nucl RBC A uto (Bld) [#/Vol] 7.3 10*3/uL 3.8-11.6 [facility] Lymphocytes Auto (Bld) [#/Vo l]Ordered By: Aman Colon on 05-24-2022 Lymphocytes (Bld) [#/Vol] 2.1 10*3/uL 1.00-4.8 [facility] Lymphocytes/100 WBC Auto (Bl d)Ordered By: Aman Colon on 05-24-2022 Lymphocytes/100 WBC (Bld) 29.0 % . [facility] MCH Auto (RBC) [Entitic mass ]Ordered By: Aman Colon on 05-24-2022 MCH (RBC) [Entitic mass] 28.4 pg 24.7-34.3 [facility] MCHC Auto (RBC) [Mass/Vol]Or dered By: Aman Colon on 05-24-2022 MCHC (RBC) [Mass/Vol] 33.3 g/dL 32.0-35.0 [facility] MCV Auto (RBC) [Entitic vol] Ordered By: Aman Colon on 05-24-2022 MCV (RBC) [Entitic vol] 85.1 fL 80-100 [facility] Monocyte distribution width [Entitic volume] in Blood by AutomatedOrdered By: Aman Colon on 05-24-2022 Monocyte distribution width Auto (Bld) [Entitic vol] 18.05 % 0.00-20.00 [facility] Monocytes Auto (Bld) [#/Vol] Ordered By: Aman Colon on 05-24-2022 Monocytes (Bld) [#/Vol] 0.6 10*3/uL 0.0-0.8 [facility] Monocytes/100 WBC Auto (Bld) Ordered By: Aman Colon on 05-24-2022 Monocytes/100 WBC (Bld) 8.3 % . [facility] Neutrophils Auto (Bld) [#/Vo l]Ordered By: Aman Colon on 05-24-2022 Neutrophils (Bld) [#/Vol] 4.4 10*3/uL 1.8-7.7 [facility] Neutrophils/100 WBC Auto (Bl d)Ordered By: Aman Colon on 05-24-2022 Neutrophils/100 WBC (Bld) 60.6 % . [facility] Nitrite Test strip Ql (U)Ord ered By: PROVIDER TEMP on 05-24-2022 Nitrite Ql (U) Negative Negative [facility] No Panel InformationOrdered By: Aman Colon on 05-24-2022 Estimated GFR (CKD-EPI) > 60.0 mL/Min [facility] Creatinine Clearanc e (Chem 109.74 [facility] Nucleated erythrocytes [Pres ence] in Blood by Automated countOrdered By: Aman Colon on 05-24-2022 Nucleated RBC Auto Ql (Bld) 0.1 /100{WBC} 0-0.5 [facility] Platelet mean volume Auto (B ld) [Entitic vol]Ordered By: Aman Colon on 05-24-2022 Platelet mean volume (Bld) [Entitic vol] 7.5 fL 6.3-10.7 [facility] Platelets Auto (Bld) [#/Vol] Ordered By: Aman Colon on 05-24-2022 Platelets (Bld) [#/Vol] 263 10*3/uL 150-450 [facility] Potassium [Moles/volume] in Serum or PlasmaOrdered By: Aman Colon on 05-24-2022 Potassium [Moles/Vol] 4.4 mmol/L 3.5-5.1 [facility] Protein Auto test strip (U) [Mass/Vol]Ordered By: PROVIDER TEMP on 05-24-2022 Protein (U) [Mass/Vol] Trace mg/dL Negative [facility] RBC Auto (Bld) [#/Vol]Ordere d By: Aman Colon on 05-24-2022 RBC (Bld) [#/Vol] 4.48 10*6/uL 3.60-5.00 [facility] Rhogam Workupon 05-24-2022 Rhogam Candidate Not a Candidate Normal [facility] Comment on above: Result Comment: PERF ORMED BY: [address] [id number] PATHOLOGIST [employer] JESSICA MANE M.D. ABO and Rh group Nom (Bld) Blood group B Rh(D) positive Normal [facility] Serum or plasma anion gap de terminationOrdered By: Aman Colon on 05-24-2022 Anion gap [Moles/Vol] 8.6 mmol/L 6.0-15.0 [facility] Sodium [Moles/volume] in Ser um or PlasmaOrdered By: Aman Colon on 05-24-2022 Sodium [Moles/Vol] 135 mmol/L 136-145 [facility] Specific gravity Auto test s trip (U) [Rel density]Ordered By: PROVIDER TEMP on 05-24-2022 Specific gravity (U) [Rel density] 1.016 1.001-1.030 [facility] Squamous epithelial cells de tection in urine sediment by light microscopyOrdered By: PROVIDER TEMP on 05-24-2022 Epithelial cells.squamous LM Ql (Urine sed) 10-19 [HPF] 0-2 [facility] US OB transvaginalon 023 US OB transvaginal [facility] Main [address] [address] Ultrasound Report Signed Patient: Marissa Han MR#: [id number] : 1990 Acct:[id number] Age/Sex: 32 / F ADM Date: 05/24/22 Loc: ER Room: Type: [facility] ER Attending Dr: Ordering Provider: Aman Colon DO Date of Service: 05/24/22 US/US OB <= 14 weeks fetus: OB/Uterine Contractions ([id number]) US/US OB transvaginal: pelvic pain Copies to: Aman Colon DO Obstetrical ultrasound for fetus less than 14 weeks HISTORY: Pelvic cramping. Estimated 6 weeks . Beta hCG level 9975. COMPARISON: None No cardiac activity demonstrated. The ovaries are unremarkable. No free fluid identified in cul-de-sac. No subchorionic hemorrhage identified. Intrauterine sac is present. This would likely represent 6 mm gestational sac with estimated gestational age of 5 weeks 1 day. There is a suspected yolk sac measuring up to 3 mm. The es timated due date by this ultrasound is 01/23/2023. US/US OB <= 14 weeks fetus IMPRESSION: Intrauterine sac with suspected yolk sac. This may represent very early intrauterine gestation. No pole or cardiac activity identified. No adnexal masses present. No free fluid is seen. Confirmation of viable intrauterine should be assessed with follow-up pelvic ultrasound and beta hCG levels.. Impression dictated by: Manuel Bray M.D.05/24/2022 7:14 PM Dictation Location: [place] [address] Tech: Lulu Spencer Transcribed By: ADRIA 05/24/221913 Dictated By: Manuel Bray DO 05/24/22 185 Signed By: 05/24/221913 [facility] Urea nitrogen [Mass/volume] in Serum or PlasmaOrdered By: Aman Colon on 05-24-2022 Urea nitrogen [Mass/Vol] 10 mg/dL 09-11 [facility] Urine Cultureon 05-24-2022 Bacteria identified Cx Nom (U) 75,000 colonies/ml mixed bacterial skin contaminants 2 Days PERFORMED BY: [address] [id number] PATHOLOGIST [employer] JESSICA MANE M.D. [facility] Comment on above: Performed By: #### A PAOLO DWYER #### [place] [id number] [place] Urine bacteria detection by automated methodOrdered By: PROVIDER TEMP on 05-24-2022 Bacteria Auto Ql (U) 3+ None Seen [facility] Urine clarity by refractomet ry automatedOrdered By: PROVIDER TEMP on 05-24-2022 Clarity Refractometry automated (U) Turbid Clear [facility] Urine culture routineOrdered By: PROVIDER TEMP on 05-24-2022 Bacteria identified Cx Nom (U) 2 Days [facility] Urine glucose measurement by automated test strip (mass/volume)Ordered By: PROVIDER TEMP on 05-24-2022 Glucose Auto test strip (U) [Mass/Vol] Normal mg/dL Normal [facility] Urine hemoglobin detection b y automated test stripOrdered By: PROVIDER TEMP on 05-24-2022 Hemoglobin Auto test strip Ql (U) Negative Ne gative [facility] Urine leukocyte esterase det ection by automated test stripOrdered By: PROVIDER TEMP on 05-24-2022 Leukocyte esterase Auto test strip Ql (U) 4+ Negative [facility] Urobilinogen Auto test strip (U) [Mass/Vol]Ordered By: PROVIDER TEMP on 05-24-2022 Urobilinogen (U) [Mass/Vol] Normal mg/dL Normal [facility] WBC Auto (Bld) [#/Vol]Ordere d By: Aman Colon on 05-24-2022 WBC (Bld) [#/Vol] 7.3 10*3/uL 3.8-11.6 [facility] pH Auto test strip (U)Ordere d By: GALO SAUCEDO on 05-24-2022 pH (U) 8.0 [pH] 5.0-9.0 [facility] Vital Signs Date Time Vital Sign Value Performing Clinician Facility 07-01-2022 12:00-0400 Body height 165.1 cm [facility] Other 07-01-2022 12:00-0400 Body mass index (BMI) [Ratio] 22.46 kg/m2 [facility] Other 07-01-2022 12:00-0400 Body temperature 98 [degF] [facility] Other 07-01-2022 12:00-0400 Body weight 61.24 kg [facility] Other [facility] Other 07-01-2022 12:00-0400 Diastolic blood pressure 71 mm[Hg] [facility] Other [facility] Other 07-01-2022 12:00-0400 Respiratory rate 18 /min [facility] Other 07-01-2022 12:00-0400 SaO2% (BldA) [Mass fraction] 100 % [facility] Other 07-01-2022 12:00-0400 Systolic blood pressure 106 mm[Hg] [facility] Other 06-30-2022 15:33-0400 Diastolic blood pressure 61 mm[Hg] MD Thanh Fregoso Work Phone: [facility] 06-30-2022 15:33-0400 Heart rate 86 /min MD Thanh Fregoso Work Phone: [facility] 06-30-2022 15:33-0400 Respiratory rate 18 /min MD Thanh Fregoso Work Phone: [facility] 06-30-2022 15:33-0400 SaO2% (BldA) [Mass fraction] 100 % MD Thanh Fregoso Work Phone: [facility] 06-30-2022 15:33-0400 Systolic blood pressure 123 mm[Hg] MD Thanh Fregoso Work Phone: [facility] 06-30-2022 13:53-0400 Body height 165.1 cm MD Thanh Fregoso Work Phone: [facility] 06-30-2022 13:53-0400 Body temperature 98.6 [degF] MD Thanh Fregoso Work Phone: [facility] 06-30-2022 13:53-0400 Body weight 60.25 kg MD Thanh Fregoso Work Phone: [facility] 06-13-2022 22:34-0400 Diastolic blood pressure 74 mm[Hg] MD Thanh Fregoso Work Phone: [facility] 06-13-2022 22:34-0400 Heart rate 70 /min MD Thanh Fregoso Work Phone: [facility] 06-13-2022 22:34-0400 Respiratory rate 18 /min MD Thanh Fregoso Work Phone: [facility] 06-13-2022 22:34-0400 SaO2% (BldA) [Mass fraction] 97 % MD Thanh Fregoso Work Phone: [facility] 06-13-2022 22:34-0400 Systolic blood pressure 118 mm[Hg] MD Thanh Fregoso Work Phone: [facility] 06-13-2022 17:25-0400 Body height 165.1 cm MD Thanh Fregoso Work Phone: [facility] 06-13-2022 17:25-0400 Body temperature 98.1 [degF] MD Thanh Fregoso Work Phone: [facility] 06-13-2022 17:25-0400 Body weight 59 kg MD Thanh Fregoso Work Phone: [facility] 05-24-2022 19:08-0400 Diastolic blood pressure 81 mm[Hg] MD Thanh Fregoso Work Phone: [facility] 05-24-2022 19:08-0400 Heart rate 96 /min MD Thanh Fregoso Work Phone: [facility] 05-24-2022 19:08-0400 Respiratory rate 16 /min MD Thanh Fregoso Work Phone: [facility] 05-24-2022 19:08-0400 SaO2% (BldA) [Mass fraction] 98 % MD Thanh Fregoso Work Phone: [facility] 05-24-2022 19:08-0400 Systolic blood pressure 126 mm[Hg] MD Thanh Fregoso Work Phone: [facility] 05-24-2022 15:59-0400 Body height 165.1 cm MD Thanh Fregoso Work Phone: [facility] 05-24-2022 15:59-0400 Body temperature 98 [degF] MD Thanh Fregoso Work Phone: [facility] 05-24-2022 15:59-0400 Body weight 58.4 kg MD Thanh Fregoso Work Phone: [facility] 03-27-2022 14:46-0500 Body height 165.1 cm Ekaterina Salvador MD Work Phone: [facility] 03-27-2022 14:46-0500 Body mass index (BMI) [Ratio] 20.39 kg/m2 Ekaterina Salvador MD Work Phone: [facility] 03-27-2022 14:46-0500 Body temperature 98.49 [degF] Ekaterina Salvador MD Work Phone: [facility] 03-27-2022 14:46-0500 Body weight 55.57 kg Ekaterina Salvador MD Work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
== END 2023-01-24 10:30 | disposition home or self-care (01) ==
LOC: FBCO 08:22
PROVIDERS: PCP Family Medicine; Visit Provider Obstetrics & Gynecology
DX: Z39.2 Encounter for routine postpartum follow-up (principal)

== ENCOUNTER 2025-01-20 15:36 | Emergency (ER) | payer OTHER, BC, SELFPAY ==
--- OUTSIDE RECORDS SUMMARY | 2024-04-21 10:00 | XMS_ITS ---
Author Organization [facility] Serv[facility] es Address [address] [place] [address] Care Team Providers Care Irrigation Worker Name Role Phone Lana Puente Primary Care Provider Kyle Mendoza Unavailable [phone] REASON FOR VISIT 1 month f/u Encounters Encounter Location Date Provider Diagnosis [place] [address] [facility] [address] 2024 Kyle Mendoza Plan Of Treatment No Information Progress Notes * SARAH HANDOB: [birth year] (34 yo F)Acc No.[id number]:04/21/2024 Behavioral Health Patient: SARAH COLLINS :?DANIEL DaleyPDOB:1990???Age:34 Y???Sex: FemaleDate:04/21/2024Phone:[phone]:[address] [id number]:Lana Puente Subjective: * Chief Complaints: * 1 month f/u * Electronic signature of TEODORO Daley on 01/20/2025 at 04:35 PM ESTSign off status: Pending * Provider: TEODORO Villareal Date: 0 04/21/2024 Generated for Printing/Faxing/eTransmitting on:?01/20/2025 04:35 PM EST
--- OUTSIDE RECORDS SUMMARY | 2024-04-28 08:00 | XMS_ITS ---
Author Organization [employer] [facility] Address [address] [place] [address] Care Team Providers Care Bread Baker Name Role Phone Lana Puente Primary Care Provider [phone] Reji Kyle Unavailable [phone] REASON FOR VISIT 3 month f/u Medications Medication SIG (Take, Route, Frequency, Duration) Notes Start Date End Date Status Escitalopram Oxalate 10 MG Tablet 1 tablet Orall y Once a day; Duration: 90 days 4ActivePramipexole Dihydrochloride ER 0.375 MG Tablet Extended Release 24 Hour1 tablet Orally Once a day; Duration: 7 days04/21/2024tivePramipexole Dihydrochloride ER 0.75 MG Tablet Extended Release 24 Hour1 tablet Orally Once a day; Duration: 30 daysstart after completing .375mg dose5ActiveLexapro 5 MG Tablet1 tablet Orally Once a day; Duration: 7 daysweaning dose Not-Taking/PRNtraZODone HCl 100 MG Tablet1 tablet at bedtime as needed Orally Once a day; Duration: 30 days03/27/2023ctiveQUEtiapine Fumarate 25 MG Tablet1 tablet once a day for 4 days, 2 tablets once a day for 4 days, 3 tablets once a day for 4 days, 4tablets once a day for 18 days Orally; Duration: 30 daysmay increase by 1 tablet every 4 days until proper sleep hygiene is achieved, maximum of 4 goyvjdk1204/25/2023Not-Taking/PRNGabapentin 300 MG Capsule1 capsule Orally three times a day; Duration: 30 days03/27/2024Not-Taking/PRNVyvanse 40 MG Capsule1 capsule in the morning Orally Once a day; Duration: 30 days04/03/2024 ActiveLisdexamfetamine Dimesylate 30 MG Capsule1 capsule in the morning Orally Once a day; Duration: 30 days03/03/2024Not-Taking/PRNLORazepam 0.5 MG Tablet 1 tablet Orally twice a day; Duration: 30 days As needed 03/27/2024tiveALPRAZolam 0.25 MG Tablet 1 tablet Orally Twice a day; Duration: 30 days As needed 01/28/2024Not-Taking/PRN Encounters Encounter Location Date Provider Diagnosis [address] [place] [address] 2024 Kyle Mendoza Plan Of Treatment No Information Progress Notes * SARAH HANDOB: [birth year] (34 yo F)Acc No.[id number]:04/28/2024 Behavioral Health Patient: Marlee SARAH SANDERS :?Kyle Mendoza, FNPDOB:1990???Age:34 Y???Sex: FemaleDate:04/28/2024Phone:[phone]:[address], [id number]:Lana Puente Subjective: * Chief Complaints: * 3 month f/u * Medications: T akingLORazepam 0.5 MG Tablet 1 tablet Orally twice a day As neededVyvanse 40 MG Capsule 1 capsule in the morning Orally Once a day Pramipexole Dihydrochloride ER 0.375 MG Tablet Extended Release 24 Hour 1 tablet Orally Once a day Pramipexole Dihydrochloride ER 0.75 MG Tablet Extended Release 24 Hour 1 tablet Orally Once a day , Notes to Pharmacist: start after completing .375mg doseEscitalopram Oxalate 10 MG Tablet 1 tablet Orally Once a day traZODone HCl 100 MG Tablet 1 tablet at bedtime as needed Orally Once a day Taking LORazepam 0.5 MG Tablet 1 tablet Orally twice a day As neededTaking Vyvanse 40 MG Capsule 1 capsule in the morning Orally Once a day Taking Pramipexole Dihydrochloride ER 0.375 MG Tablet Extended Release 24 Hour 1 tablet Orally Once a day Taking Pramipexole Dihydrochloride ER 0.75 MG Tablet Extended Release 24 Hour 1 tablet Orally Once a day , Notes to Pharmacist: start after completing .375mg doseTaking Escitalopram Oxalate 10 MG Tablet 1 tablet Orally Once a day Taking traZODone HCl 100 MG Tablet 1 tablet at bedtime as needed Orally Once a day Not-Taking/PRNALPRAZolam 0.25 MG Tablet 1 tablet Orally Twice a day As neededLisdexamfetamine Dimesylate 30 MG Capsule 1 capsule in the morning Orally Once a day Gabapentin 300 MG Capsule 1 capsule Orally three times a day QUEtiapine Fumarate 25 MG Tablet 1 tablet once a day for 4 days, 2 tablets once a day for 4 days, 3 tablets once a day for 4 days, 4 tablets once a day for 18 days Orally , Notes to Pharmacist: may increase by 1 tablet every 4 days until proper sleep hygiene is achieved, maximum of 4 tabletsLexapro 5 MG Tablet 1 tablet Orally Once a day , Notes to Pharmacist: weaning doseNot-Taking/PRN ALPRAZolam 0.25 MG Tablet 1 tablet Orally Twice a day As neededNot-Taking/PRN Lisdexamfetamine Dimesylate 30 MG Capsule 1 capsule in the morning Orally Once a day Not-Taking/PRN Gabapentin 300 MG Capsule 1 capsule Orally three times a day Not-Taking/PRN QUEtiapine Fumarate 25 MG Tablet 1 tablet once a day for 4 days, 2 tablets once a day for 4 days, 3 tablets once a day for 4 days, 4 tablets once a day for 18 days Orally , Notes to Pharmacist: may increase by 1 tablet every 4 days until proper sleep hygiene is achieved, maximum of 4 tabletsNot-Taking/PRN Lexapro 5 MG Tablet 1 tablet Orally Once a day , Notes to Pharmacist: weaning dose Billing Information: * Procedure Codes: * Electronic signature of TEODORO Daley on 01/20/2025 at 04:35 PM ESTSign off status: Pending * Provider: TEODORO Villareal Date: 0 04/28/2024 Generated for Printing/Faxing/eTransmitting on:?01/20/2025 04:35 PM EST
--- OUTSIDE RECORDS SUMMARY | 2024-08-25 05:00 | XMS_ITS ---
Author Organization [facility] Serv[facility] es Address [address] [place] [address] Care Team Providers Care Apartment Community Assistant Manager Name Role Phone Lana Puente Primary Care Provider [phone] Kyle Mendoza Unavailable [phone] REASON FOR VISIT 3 month f/u Encounters Encounter Location Date Provider Diagnosis [place] [address] [facility] [place] [address] 2024 Kyle Mendoza Plan Of Treatment No Information Progress Notes * SARAH HANDOB: [birth year] (34 yo F)Acc No.[id number]:08/25/2024 Behavioral Health Patient: SARAH COLLINS :?DANIEL DaleyPDOB:1990???Age:34 Y???Sex: FemaleDate:08/25/2024Phone:[phone]:[address] [id number]:Lana Puente Subjective: * Chief Complaints: * 3 month f/u * Electronic signature of TEODORO Daley on 01/20/2025 at 04:35 PM ESTSign off status: Pending * Provider: TEODORO Villareal Date: 0 08/25/2024 Generated for Printing/Faxing/eTransmitting on:?01/20/2025 04:35 PM EST
--- OUTSIDE RECORDS SUMMARY | 2025-01-06 09:45 | XMS_ITS ---
Author Organization [facility] Serv[facility] es Address [address] [place] [address] Care Team Providers Care Painter Chassis Name Role Phone Lana Puente Primary Care Provider [phone] Portia Sanabria [phone] REASON FOR VISIT anxiety Encounters Encounter Location Date Provider [address] [place] [address] 2024 Portia Sanabria Plan Of Treatment No Information Progress Notes * SARAH HANDOB: [birth year] (34 yo F)Acc No.[id number]:01/06/2025 Consult - Patient Patient: SARAH COLLINS :?PORTIA SANABRIADOB:1990???Age:34 Y???Sex:Female Date:01/06/2025Phone:[phone]:[address] [id number] Pcp:Lana Puente Subjective: * Chief Complaints: * A nxiety Care Plan Details* * Electronic signature of MARVIN White on 01/20/2025 at 04:35 PM ESTSign off status: Pending * Provider: Jenelle SANABRIA Date: 03/08/2024 Generated for Printing/Faxing/eTransmitting on:?01/20/2025 04:35 PM EST
[2025-01-20 15:42] VITALS: BP 132/90; PULSE 95; TEMP 36.8; O2SAT 100; BMI 21.6
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
--- OUTSIDE RECORDS SUMMARY | 2025-01-20 16:35 | XMS_ITS | Clinical Summary ---
Author Organization [facility] Address [address] [place], [place] [address] Care Team Providers Care Hammer Smith Name Role Phone Thanh Fregoso MD Primary Care Provider [phone] Allergies No known active allergies Medications MedicationSigDispense QuantityRefillsLast FilledStart DateEnd DateStatus MELATONIN PO Take by mouth. Per patient - only as neededActive Active Problems ProblemNoted DateDiagnosed DateScar of skin of lip03/27/2022Mass of right breast 03/27/2022History of bilateral breast ytamufbr30/07/2023 Social History Tobacco UseTypesPacks/DayYears UsedDateSmoking Tobacco: NeverSmokeless Tobacco: Never Tobacco Cessation:Counseling Given: Not Answered Alcohol UseStandard Drinks/WeekCommentsNot Currently0 (1 standard drink = 0.6 oz pure alcohol)CommentsUnknownSex and Gender InformationValueDate Recorded Sex Assigned at BirthNot on fileLegal RydPolqhs49/03/2023 11:17 AM ESTGender IdentityNot on fileSexual OrientationNot on file Last Filed Vital Signs Vital SignReadingTime TakenCommentsBlood Zhtdscjb247/80003/27/2022 2:46 PM EST Nswes317803/27/2022 2:46 PM TVJKoeuzntayai78.9 ??C (98.5 ??F)03/27/2022 2:46 PM ESTRespiratory Rate--Oxygen Saturation--Inhaled Oxygen Concentration--Hijlcu14.6 kg (122 lb 8 oz)03/27/2022 2:46 PM QRABynogd906.1 cm (5' 5 )03/27/2022 2:46 PM ESTBody Mass Index20.39003/27/2022 2:46 PM EST Plan of Treatment Health MaintenanceDue DateLast DoneCommentsHEPATITIS C VIRUS LZDVLTJNY60/11/1989 MVHRXHM51 1988HIV SCREENING WFJXQGVUMF49/11/2004HEP B VACCINE (1 of 3 - 19+ 3-dose series)02/28/2007TDAP (ADULT)02/28/2007CERVICAL CANCER SCREENING HSUEBQRYIW58/11/2010HPV VACCINE (1 - 3-dose SCDM series)02/28/2015COVID-19 VACCINE (2024- season)2024INFLUENZA VACCINE (#1)2024 PNEUMOCOCCAL VACCINE SERIESAged OutNo longer eligible based on patient's age to complete this topic Insurance on file Care Teams Team MemberRelationshipSpecialtyStart DateEnd Thanh Fregoso MD PCP - GeneralFamily Medicine03/27/22
--- OUTSIDE RECORDS SUMMARY | 2025-01-20 16:35 | XMS_ITS | Patient Health Record ---
Author Organization [facility] Address [address] [place] [address] Care Team Providers Care Government Affairs Director Name Role Phone Devyn Fregosomaegan Primary Care Provider Unavailabl e Allergies No Known Allergies Reason For Referral No Information Medications Medication SIG (Take, Route, Frequency, Duration) Notes Start Date End Date Status Melatonin 10 MG as directed Orally At Bedtime; D uration: 30 days 03/23/2022ctivePROzac 10 MG1 capsule Orally Once a day; Duration: 30 day(s) 03/23/2022ctivePropranolol HClNot-TakingVistaril 50 MG1 capsule at bedtime as needed Orally Once a day; Duration: 30 day(s)03/23/2022ctive Immunizations Vaccine Route Administration Date Status Comme nts z2022 Fluzone Quad PFS (0.5m L Admin) 6 months & older Unknown 03/23/2022 Refused Social History Tobacco Use: Social History Observation Description Date Details (start date - stop date) Never Smoker NA - NA Tobacco Use Question Answer Notes Are you a Never smoker Problems Problem Type SNOMED Code ICD Code Onset Dates Problem Status W/U Status Risk Notes Problem Generalized anxiety disorder (32388318) Generalized anxiety disorder (F41.1) ActiveconfirmedProblemSleep disturbance (60944054)Sleep disturbance (G47.9) Activeconfirmed Plan Of Treatment No Information Insurance Providers Payer Name Payer Address Payer Phone Subscriber Number Group Number Insured Name Patient Relationship to Insured Coverage Start Date Coverage End Date [facility] [address] [place] [address] [id number] SARAH HANSelf - patient is the insured Medical (General) History Medical History History ICD Code Anxiety F41.9
--- OUTSIDE RECORDS SUMMARY | 2025-01-20 16:36 | XMS_ITS | Clinical Summary ---
Author Organization [facility] Address [address] [place], [place] [id number] Care Team Providers Care Flumer Name Role Phone Mariana Chua MD Primary Care Provider [phone] Social History Tobacco UseTypesPacks/DayYears UsedDateSmoking Tobacco: Never Assessed CommentsUnknownSex and Gender InformationValueDate RecordedSex Assigned at Not on fileLegal KlzKgqmps28/02/2012 10:07 AM ESTGender IdentityNot on file Sexual OrientationNot on file Plan of Treatment Health MaintenanceDue DateLast DoneCommentsAnxiety Ttjatctmh17/11/2007Depression Ccigkbpwd21/11/2007HIV Qnzcpteli07/11/2007Hepatitis C Mmkqfuyce17/11/2007 DTaP,Tdap,Td Vaccine (1 - Tdap)02/28/2007Hepatitis B Vaccine (1 of 3 - 19+ 3- dose series)02/28/2007Cervical Cancer Hiqsgqrqf63/11/2010HPV Vaccine (1 - 3-dose SCDM series)02/28/2015Covid-19 Vaccine ( - 2024- season)2024Influenza Vaccine (#1)2024 Insurance Care Teams Team MemberRelationshipSpecialtyStart DateEnd Date Mariana Chua MD [address] [place] [id number] [facility]
--- OUTSIDE RECORDS SUMMARY | 2025-01-20 16:36 | XMS_ITS | Clinical Summary ---
Author Organization [facility] Address [address] [place] [address] Care Team Providers Care Breastfeeding Educator Name Role Phone Radha Barr Unavailable Unallocated, Noms Provider Primary Care Provi rani Allergies No known active allergies Medications MedicationSigDispense QuantityRefillsLast FilledStart DateEnd DateStatus escitalopram (Lexapro) 10 MG tablet Indications: depressionTake 1 tablet (10 mg) by mouth in the morning. 30 tablet 3Active LORazepam (Ativan) 0.5 MG tablet Take 0.5 mg by mouth every 8 (eight) hours if needed for /14/2025Active traZODone (Desyrel) 100 MG tablet Take 100 mg by mouth at mvsmpes93/04/2025Active Active Problems ProblemNoted DateDiagnosed DateGeneralized anxiety iffeojkl78/17/2025 Family History Medical HistoryRelationNameCommentsDiabetesFatherHeart diseaseFatherCAD HypertensionFatherStrokeFatherThyroid diseaseMaternal GrandmotherAsthmaMother pre-eclampsiaMotherDiabetes type IOtherFOBThyroid diseasePaternal GrandmotherNo Known ProblemsSister 1EndometriosisSister 2RelationNameStatusCommentsFather DeceasedMaternal GrandmotherMotherAliveOtherFOBPaternal GrandmotherSister 1 Sister 2 Social History Tobacco UseTypesPacks/DayYears UsedDateSmoking Tobacco: Never Tobacco Cessation:Counseling Given: Yes Alcohol UseStandard Drinks/WeekCommentsNever0 (1 standard drink = 0.6 oz pure alcohol)Caffeine: 1-2 cups/day coffeePHQ-2AnswerDate RecordedPatient Health Questionnaire-2 Vbwaw32305/21/2024CommentsUnknownSex and Gender InformationValueDate RecordedSex Assigned at YxbniAnquzf17/13/2023 1:10 PM EDT Legal BaiImemeb24/15/2023 6:50 PM EDTGender GdyjhcipDalqae18/13/2023 1:10 PM EDT Sexual JerjmxhnazqDkpqqhwi49/13/2023 1:10 PM EDT Last Filed Vital Signs Vital SignReadingTime TakenCommentsBlood Vhzvyevj099/6012 11:42 AM EST Pulse--Temperature--Respiratory Rate--Oxygen Saturation--Inhaled Oxygen Concentration--Zeindw41.2 kg (135 lb)07/16/2024 8:52 AM RSPGhdtqh932.1 cm (5' 5 )07/16/2024 8:52 AM EDTBody Mass Index22.47007/16/2024 8:52 AM EDT Plan of Treatment Health MaintenanceDue DateLast DoneCommentsCOVID-19 Vaccine ( season) 2024Influenza Vaccine (#1)2024ervical Cancer Vfivibanv28/14/2028Pap SmearHPV/Cjjvgf83/neumococcal Vaccine: Pediatrics (0 to 5 Years) and At-Risk Patients (6 to 64 Years)Aged OutNo longer eligible based on patient's age to complete this topic Procedures Procedure NamePriorityDate/TimeAssociated DiagnosisCommentsTHINPREP PAP AND HPV MRNA E6/E7 W/RFL HPV 16,18/47Rokpvav40/05/2023 9:03 AM EDT Well woman exam with routine gynecological exam PAP MSLWSIoobfoi94/14/2023 12:00 AM EDTfrom Last 3 Months or Most Recently Relevant to Health Maintenance Results * THINPREP PAP AND HPV MRNA E6/E7 W/RFL HPV 16,18/45 (08/22/2022 9:03 AM EDT) Narrative Authorizing ProviderResult TypeResult StatusCorey Jenny DOLAB BLOOD ORDERABLES Final ResultPerforming OrganizationAddressCity/State/ZIP CodePhone Number EXTERNAL LAB * Pap Smear (07/01/2022 12:00 AM EDT)Specimen (Source)Anatomical Location / LateralityCollection Method / VolumeCollection TimeReceived TimeSwabCervical swab / Unknown Narrative Authorizing ProviderResult TypeResult StatusHistorical Provider KELLEY CYTOLOGY ORDERABLESFinal ResultPerforming OrganizationAddressCity/State/ZIP CodePhone Number EXTERNAL LAB from Last 3 Months or Most Recently Relevant to Health Maintenance Care Teams Team MemberRelationshipSpecialtyStart DateEnd Date Radha Barr PA [address] [place] [address] [place] [address] PCP - [facility]05/20/23 Unallocated, Noms Provider, [place] [address] PCP - [facility]08/15/23
== END 2025-01-20 17:35 | disposition home or self-care (01) ==
PROVIDERS: Emergency Provider Emergency Medicine; PCP Family Medicine
DX: S76.012A Strain of muscle, fascia and tendon of left hip, initial encounter (principal); V49.49XA Driver injured in collision with other motor vehicles in traffic accident, initial encounter; Y92.410 Unspecified street and highway as the place of occurrence of the external cause
CPT/HCPCS: 73502; 99283